=== PATIENT | female | born 1965 | race Caucasian/White ===

== ENCOUNTER → 2016-04-30 | Outpatient (CLI) | payer OTHER ==
[2016-04-30 07:56] LABS: EKG EKG PERFORMED
[2016-04-30 08:46] LABS: INR 0.9 (<1.1); Prothrombin Time 9.7 sec (9.0-12.0)
[2016-04-30 08:51] LABS: Basophils % (A) 0 %; CHCM 31.9; Eosinophils % (A) 0 %; HCT 44.6 % (34.0-46.0); HDW 2.04; HGB 14.2 gm/dL (11.4-16.0); Luc # (Auto) 0.14; Luc % (Auto) 1; Lymphocytes # (A) 1.7 k/uL (1.0-4.8); Lymphocytes % (A) 8 %; MCH 31.1 pg (25.0-35.0); MCHC 31.8 g/dL (31.0-37.0); MCV 97.7 fL (80.0-100.0); Mean Platelet Volume 7.4; Monocytes # (A) 0.6 k/uL (0-1.0); Monocytes % (A) 3 %; Neutrophils # (A) 18.8 k/uL (1.3-7.7); Neutrophils % (A) 88 %; RBC 4.56 m/uL (3.80-5.40); RDW 12.8 % (11.5-15.5); WBC 21.3 k/uL (3.8-10.6); WBC (Perox) 21.65
[2016-04-30 08:58] LABS: Anion Gap 13 mmol/L; Blood Urea Nitrogen 24 mg/dL (7-17); Calcium 9.6 mg/dL (8.4-10.2); Carbon Dioxide 22 mmol/L (22-30); Chloride 107 mmol/L (98-107); Glucose 184 mg/dL (74-99); Non-African American GFR(MDRD) >60 (>60 ml/min/1.73 sqM); Potassium 4.7 mmol/L (3.5-5.1); Sodium 142 mmol/L (137-145)
[2016-04-30 09:05] LABS: Appearance,Urine Clear (Clear); Bilirubin,Urine Negative (Negative); Glucose,Urine (UA) Negative (Negative); Ketones,Urine 1+ (Negative); Leukocyte Esterase,Urine Negative (Negative); Nitrite,Urine Negative (Negative); Protein,Urine Negative (Negative); Specific Gravity,Urine 1.027 (1.001-1.035); UA Billing (MACRO vs. MICRO) CHEM; Urobilinogen,Urine <2.0 mg/dL (<2.0)
== END | disposition home or self-care (01) ==
LOC: LABWHC1 07:46
PROVIDERS: ATTEND Orthopaedic Surgery
DX: Z01.812 Encounter for preprocedural laboratory examination (principal); D61.3 Idiopathic aplastic anemia; I49.49 Other premature depolarization; N39.0 Urinary tract infection, site not specified; Z79.01 Long term (current) use of anticoagulants
CPT/HCPCS: 36415; 80048; 81003; 85025; 85610; 85730; 87086; 93005

== ENCOUNTER → 2018-02-23 | Outpatient (CLI) | payer OTHER ==
--- NOTE | 2018-02-24 08:39 | XR ---
Lumbosacral spine HISTORY: Trauma and pain 5 views of lumbosacral spine No comparisons Surgical clips are present in the right upper quadrant. Vascular calcifications are noted incidentall y. Lumbar vertebral bodies show preserved height, bone mineralization. There is anterolisthesis grade 1 L3-4. Loss of disc height present at intervertebral levels especially L3-4, L4-5 and L5-S1. There is associated vacuum disc phenomenon present. Facet arthropathy changes are present. There is multile rajendra spondylosis. No evident spondylolysis. Postop changes noted near the gastroesophageal junction. IMPRESSION: Degenerative disc disease and facet arthropathy.
== END | disposition home or self-care (01) ==
LOC: RADXRMAIN 17:01
PROVIDERS: ATTEND Family Medicine
DX: M51.37 Other intervertebral disc degeneration, lumbosacral region (principal); M46.97 Unspecified inflammatory spondylopathy, lumbosacral region
CPT/HCPCS: 72110

== ENCOUNTER 2018-11-28 07:37 | Day surgery (SDC) | payer OTHER ==
[2018-11-25 11:11] VITALS: BMI 27.4
[~2018-11-28 07:37] MED LIST: LACTATED RINGERS 1,000 ML IV SCH; LIDOCAINE 1% 20 ML VIAL (10MG/ML) FOR IV START INTRADERMA PRN
[2018-11-28 07:58] VITALS: TEMP 97.8
[2018-11-28] MEDS ORDERED: LACTATED RINGERS 1,000 ML IV ONE (07:58)
[2018-11-28] MEDS ORDERED: PROPOFOL 10 MG/ML 20 ML VIAL IV ONE (08:46)
[2018-11-28] MEDS ORDERED: LIDOCAINE 1% INJ 10MG/ML (20 ML MDV) ONE (08:46)
--- NOTE | 2018-11-28 09:03 | P.GSHP ---
History of Present Illness H&P Date: 11/28/18 Chief Complaint: Dysphagia This a 53-year-old female with history of dysphagia. Patient rents today for EGD. 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 History of Any Multi-Drug Resistant Organisms: MRSA Date of last positivie culture/infection: 02/08/2014 MDRO Source:: CYST AT TOP OF BUTTOCKS Past Surgical History: Adenoidectomy, Cholecystectomy, Hernia Repair, Hysterectomy, Joint Replacement, Orthopedic Surgery, Tonsillectomy, Tubal Ligation, Uterine Ablation Additional Past Surgical History / Comment(s): UTERINE ABLATION 09/05/13, HYSTERECTOMY-12/19/2013., I & D CYST LIKE BOIL AT TOP OF BUTTOCKS, .RT ANKLE SURGERY, CTR-WINDY GANGLION CYSTS .,RT KNEE SCOPE X 2., LT KNEE SCOPE X1., HIATAL HERNIA REPAIR,, BILATERAL TOTAL KNEE . Past Anesthesia/Blood Transfusion Reactions: No Reported Reaction Additional Past Anesthesia/Blood Transfusion Reaction / Comment(s): STATES ALWAYS NAUSEATED. Past Psychological History: Bipolar Smoking Status: Current every day smoker Past Alcohol Use History: Rare Additional Past Alcohol Use History / Comment(s): SMOKES 1 PPD. Past Drug Use History: Marijuana Additional Drug Use History / Comment(s): SMOKES MARIJUANA DAILY - Past Family History Father Family Medical History: Unable to Obtain Mother Family Medical History: Cancer Additional Family Medical History / Comment(s): BREAST CANCER Medications and Allergies Home Medications Medication Instructions Recorded Confirmed Type Azithromycin [Zithromax Z-pack] 1 dose PO DIRECTED 11/25/18 11/25/18 History Breo Inhaler (Unknown Dose) 1 puff INHALATION DAILY 11/25/18 11/28/18 History Cetirizine HCl [Zyrtec] 10 mg PO DAILY 11/25/18 11/28/18 History Cyclobenzaprine [Flexeril] 5 mg PO BID PRN 11/25/18 11/28/18 History Naproxen (Unknown Dose) 1 tab PO DIRECTED PRN 11/25/18 11/28/18 History Omeprazole [PriLOSEC] 20 mg PO AC-BRKFST 11/25/18 11/28/18 History Ondansetron [Zofran] 4 mg PO Q8HR PRN 11/25/18 11/28/18 History Phenergan Cough Syrup 1 dose PO TID PRN 11/25/18 11/28/18 History Ranitidine HCl [Zantac] 200 mg PO DAILY 11/25/18 11/28/18 History Ziprasidone [Geodon] 60 mg PO HS 11/25/18 11/28/18 History Allergies Allergy/AdvReac Type Severity Reaction Status Date / Time sulfamethoxazole Allergy Unknown ITCHING, Verified 11/25/18 10:28 [From Bactrim] FELT LIKE BUGS CRAWLING ON SKIN trimethoprim [From Bactrim] Allergy Unknown ITCHING, Verified 11/25/18 10:28 FELT LIKE BUGS CRAWLING ON SKIN adhesive AdvReac TURNS SKIN Verified 11/25/18 10:27 RED AND SKIN PEELS OFF aspartame AdvReac Nausea Verified 11/25/18 10:27 [From Nutrasweet Aspartame] codeine AdvReac Dyspnea Verified 11/25/18 10:27 saccharin AdvReac Nausea Verified 11/25/18 10:27 vancomycin AdvReac CAUSED PT Verified 11/25/18 10:27 TO GO INTO RENAL FAILURE PER PT SUGAR , JUICE, POP Allergy Unknown States Uncoded 11/25/18 11:12 "moreira" in folds of skin Surgical - Exam Vital Signs Temp Pulse Resp BP Pulse Ox 97.8 F 93 18 139/87 96 11/28/18 07:57 11/28/18 07:57 11/28/18 07:57 11/28/18 07:57 11/28/18 07:57 - General well developed, well nourished, no distress - Eyes PERRL - ENT normal pinna - Neck no masses - Respiratory normal expansion - Cardiovascular Rhythm: regular - Abdomen Abdomen: soft, non tender Assessment and Plan Assessment: Dysphagia. We'll perform EGD.
--- NOTE | 2018-11-28 09:09 | P.OP ---
Date of Procedure: 11/28/18 Preoperative Diagnosis: Dysphagia Postoperative Diagnosis: Antral gastritis Small recurrent hiatal hernia Possible slipped fundoplication Mild esophagitis Procedure(s) Performed: EGD Anesthesia: MAC Surgeon: Jeffry Kelly Pathology: other (Antrum, esophagus) Condition: stable Disposition: PACU Description of Procedure: The a she was placed on the endoscopy table in the lateral position. She received IV sedation. The gastroscope placed oropharynx and passed in the esophagus and into the stomach. Scope was then placed through the pylorus. The first and second portion of the duodenum appeared normal. Scope was then brought back the antrum and this appeared mildly inflamed. A biopsies was p erformed. Scope was then retroflexed and the remainder of the stomach appeared normal. The GE junction was at 40 cm. There was a small recurrent hiatal hernia. The fundoplication Wrap appeared to be below GE junction. The scope was then brought back into the distal esophagus this was minimal inflamed. Biopsies performed. The proximal esophagus appeared normal. Scope was withdrawn for patient.
[2018-11-28 09:17] VITALS: RESP 16
[2018-11-28 09:35] VITALS: BP 137/88; PULSE 74
== END 2018-11-28 09:50 | disposition home or self-care (01) ==
LOC: ORWHC2ENDO 07:37
PROVIDERS: ATTEND Surgery
DX: K29.50 Unspecified chronic gastritis without bleeding (principal); K44.9 Diaphragmatic hernia without obstruction or gangrene; K21.0 Gastro-esophageal reflux disease with esophagitis; J45.909 Unspecified asthma, uncomplicated; I10 Essential (primary) hypertension; M19.90 Unspecified osteoarthritis, unspecified site; G40.109 Localization-related (focal) (partial) symptomatic epilepsy and epileptic syndromes with simple partial seizures, not intractable, without status epilepticus; F31.9 Bipolar disorder, unspecified; F17.210 Nicotine dependence, cigarettes, uncomplicated; Z79.899 Other long term (current) drug therapy; Z79.51 Long term (current) use of inhaled steroids; Z79.1 Long term (current) use of non-steroidal anti-inflammatories (NSAID); Z88.5 Allergy status to narcotic agent; Z88.2 Allergy status to sulfonamides; Z91.018 Allergy to other foods; Z91.048 Other nonmedicinal substance allergy status; Z88.1 Allergy status to other antibiotic agents; Z90.89 Acquired absence of other organs; Z90.49 Acquired absence of other specified parts of digestive tract; Z90.710 Acquired absence of both cervix and uterus; Z96.653 Presence of artificial knee joint, bilateral; Z98.51 Tubal ligation status; Z98.890 Other specified postprocedural states; Z87.448 Personal history of other diseases of urinary system; Z87.09 Personal history of other diseases of the respiratory system; Z80.3 Family history of malignant neoplasm of breast
CPT/HCPCS: 88305; 43239; J2001; J2704

== ENCOUNTER → 2018-12-23 | Outpatient (CLI) | payer OTHER ==
[2018-12-23 14:40] LABS: Basophils # (A) 0.1 k/uL (0-0.2); Basophils % (A) 1 %; Eosinophils # (A) 0.2 k/uL (0-0.7); Eosinophils % (A) 2 %; HCT 39.9 % (34.0-46.0); HGB 13.1 gm/dL (11.4-16.0); Lymphocytes # (A) 4.3 k/uL (1.0-4.8); Lymphocytes % (A) 37 %; MCHC 32.8 g/dL (31.0-37.0); MCV 94.4 fL (80.0-100.0); Mean Platelet Volume 5.9; Monocytes # (A) 0.8 k/uL (0-1.0); Monocytes % (A) 7 %; Neutrophils # (A) 5.9 k/uL (1.3-7.7); Neutrophils % (A) 51 %; Platelet Count 512 k/uL (150-450); RBC 4.22 m/uL (3.80-5.40); RDW 13.5 % (11.5-15.5); WBC 11.5 k/uL (3.8-10.6)
[2018-12-23 14:48] LABS: Potassium 4.4 mmol/L (3.5-5.1)
== END | disposition home or self-care (01) ==
LOC: LABPAT 13:19
PROVIDERS: ATTEND Surgery
DX: Z01.810 Encounter for preprocedural cardiovascular examination (principal); Z01.812 Encounter for preprocedural laboratory examination; D64.9 Anemia, unspecified; R13.10 Dysphagia, unspecified; F17.200 Nicotine dependence, unspecified, uncomplicated
CPT/HCPCS: 36415; 80051; 85025; 93005

== ENCOUNTER 2018-12-26 07:40 | Inpatient (IN) | payer OTHER ==
[2018-12-21 09:32] VITALS: BMI 29.7
[~2018-12-26 07:40] MED LIST changes: +DEXAMETHASONE SOD PHOSPHATE 10 MG/ML 1 ML VIAL IV ONE; +HEPARIN SODIUM,PORCINE 5,000 UNIT/ML 1 ML VIAL SQ ONE; -LACTATED RINGERS 1,000 ML IV SCH; +ONDANSETRON 4 MG/2 ML VIAL IVP ONE; +fentaNYL (PF) 50 MCG/ML 2 ML AMP IV PRN
[2018-12-26] MEDS: LACTATED RINGERS 1,000 ML IV SCH (09:08)
--- NOTE | 2018-12-26 10:09 | P.GSHP ---
History of Present Illness H&P Date: 12/26/18 Chief Complaint: GERD, dysphagia This a 53-year-old female who presents today for laparoscopic repair of recurrent hiatal hernia. Patient has developed GERD and dysphagia. 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, TEMPORAL LOBE EPILEPSY (LAST SEIZURE 32 YRS AGO), SINUS TACHYCARDIA, STATES WBC RUNS HIGH (SEES DR MERAZ), HX OF FX BACK 1993, CONSTIPATION & DIARRHEA, NAUSEA., STATES on rx for sinus infection History of Any Multi-Drug Resistant Organisms: MRSA Date of last positivie culture/infection: 02/08/2014 MDRO Source:: CYST AT TOP OF BUTTOCKS Past Surgical History: Adenoidectomy, Cholecystectomy, Hernia Repair, Hysterectomy, Joint Replacement, Orthopedic Surgery, Tonsillectomy, Tubal Ligation, Uterine Ablation Additional Past Surgical History / Comment(s): I & D CYST LIKE BOIL AT TOP OF BUTTOCKS, RT ANKLE SURGERY, CTR-WINDY GANGLION CYSTS .,RT KNEE ARTHROSCOPY X 2, LT KNEE ARTHROSCOPY X1, HIATAL HERNIA REPAIR, BILATERAL KNEE REPLACEMENTS Past Anesthesia/Blood Transfusion Reactions: No Reported Reaction Additional Past Anesthesia/Blood Transfusion Reaction / Comment(s): STATES ALWAYS NAUSEATED. Smoking Status: Current every day smoker - Past Family History Father Family Medical History: Unable to Obtain Mother Family Medical History: Cancer Additional Family Medical History / Comment(s): BREAST CANCER Medications and Allergies Home Medications Medication Instructions Recorded Confirmed Type Cetirizine HCl [Zyrtec] 10 mg PO DAILY 11/25/18 12/26/18 History Cyclobenzaprine [Flexeril] 5 mg PO BID PRN 11/25/18 12/26/18 History Naproxen (Unknown Dose) 1 tab PO DIRECTED PRN 11/25/18 12/26/18 History Omeprazole [PriLOSEC] 20 mg PO AC-BRKFST 11/25/18 12/26/18 History Ondansetron [Zofran] 4 mg PO Q8HR PRN 11/25/18 12/26/18 History Ranitidine HCl [Zantac] 200 mg PO DAILY 11/25/18 12/26/18 History Ziprasidone [Geodon] 60 mg PO HS 11/25/18 12/26/18 History Amoxic-Pot Clav 875-125Mg 1 tab PO Q12HR 12/21/18 12/26/18 History [Augmentin 875-125] Allergies Allergy/AdvReac Type Severity Reaction Status Date / Time sulfamethoxazole Allergy Unknown ITCHING, Verified 12/26/18 09:00 [From Bactrim] FELT LIKE BUGS CRAWLING ON SKIN trimethoprim [From Bactrim] Allergy Unknown ITCHING, Verified 12/26/18 09:00 FELT LIKE BUGS CRAWLING ON SKIN adhesive AdvReac TURNS SKIN Verified 12/26/18 09:00 RED AND SKIN PEELS OFF aspartame AdvReac Nausea Verified 12/26/18 09:00 [From Nutrasweet Aspartame] codeine AdvReac Dyspnea Verified 12/26/18 09:00 saccharin AdvReac Nausea Verified 12/26/18 09:00 vancomycin AdvReac CAUSED PT Verified 12/26/18 09:00 TO GO INTO RENAL FAILURE PER PT SUGAR , JUICE, POP Allergy Unknown States Uncoded 12/26/18 09:00 "moreira" in folds of skin Surgical - Exam Vital Signs Temp Pulse Resp BP Pulse Ox 97.9 F 81 16 142/90 98 12/26/18 08:58 12/26/18 08:58 12/26/18 08:58 12/26/18 08:58 12/26/18 08:58 - General well developed, well nourished, no distress - Eyes PERRL - ENT normal pinna - Neck no masses - Respiratory normal expansion - Cardiovascular Rhythm: regular - Abdomen Abdomen: soft, non tender Assessment and Plan Assessment: GERD, dysphagia. We'll perform repair of recurrent hiatal hernia.
[2018-12-26] MEDS ORDERED: LABETALOL 5 MG/ML VIAL MDV ONE (10:31)
[2018-12-26] MEDS ORDERED: SUCCINYLCHOLINE CHLORIDE 100 MG/5 ML SYR IV ONE (10:31)
[2018-12-26] MEDS ORDERED: KETOROLAC 30 MG/ML 1 ML VIAL ONE (10:31)
[2018-12-26] MEDS ORDERED: PROPOFOL 10 MG/ML 20 ML VIAL IV ONE (10:31)
[2018-12-26] MEDS ORDERED: MIDAZOLAM 2 MG/2 ML VIAL ONE (10:31)
[2018-12-26] MEDS ORDERED: GLYCOPYRROLATE 0.2 MG/ML 2 ML VIAL ONE (10:31)
[2018-12-26] MEDS ORDERED: ROCURONIUM BROMIDE 10 MG/ML 10 ML VIAL IV ONE (10:31)
[2018-12-26] MEDS ORDERED: LIDOCAINE 1% INJ 10MG/ML (20 ML MDV) ONE (10:31)
[2018-12-26] MEDS ORDERED: NEOSTIGMINE 1 MG/ML 10 ML VIAL ONE (10:31)
[2018-12-26] MEDS ORDERED: fentaNYL (PF) 50 MCG/ML 2 ML AMP ONE (10:31)
[2018-12-26] MEDS ORDERED: LACTATED RINGERS 1,000 ML IV ONE ×2 (11:00)
[2018-12-26] MEDS ORDERED: BUPIVACAINE (PF) 0.25% 30 ML VIAL SQ ONE (11:05)
[2018-12-26] MEDS: HYDROmorphone 0.5 MG/0.5 ML SYRINGE IVP PRN ×2 (12:10→12:18)
[2018-12-26] MEDS ORDERED: hydrALAZINE HCL 20 MG/ML 1 ML VIAL IVP ONE (12:58)
[2018-12-26] MEDS: METOCLOPRAMIDE 5 MG/ML 2 ML VIAL IVP SCH ×3 (14:01→19:40)
[2018-12-26] MEDS: D5-0.45% NACL WITH KCL 20MEQ/L 1,000 ML IV SCH ×2 (17:01→23:48)
[2018-12-26] MEDS: HYDROmorphone 1 MG/ML 1 ML SYRINGE IVP PRN ×2 (17:18→21:19)
[2018-12-26] MEDS: FAMOTIDINE 20 MG/2 ML VIAL IV SCH (20:48)
[2018-12-27] MEDS: METOCLOPRAMIDE 5 MG/ML 2 ML VIAL IVP SCH ×3 (00:42→12:06)
[2018-12-27] MEDS: LACTATED RINGERS 1,000 ML IV SCH (01:43)
[2018-12-27] MEDS: HYDROmorphone 1 MG/ML 1 ML SYRINGE IVP PRN ×2 (04:38→09:04)
[2018-12-27 04:43] VITALS: RESP 16
[2018-12-27 08:37] VITALS: BP 123/77; PULSE 95; TEMP 98.3
[2018-12-27] MEDS ORDERED: ENOXAPARIN 40 MG/0.4 ML SYRINGE SQ SCH (09:00)
[2018-12-27] MEDS: FAMOTIDINE 20 MG/2 ML VIAL IV SCH (09:03)
--- NOTE | 2018-12-27 11:13 | P.DS ---
Providers Date of admission: 12/26/18 08:18 Expected date of discharge: 12/27/18 Attending physician: Jeffry Kelly Consults: 12/26/18 11:54 Consult Physician Routine Consulting Provider: David Weiss Consult Reason/Comments: Medical management Do you want consulting provider notified?: Yes Primary care physician: Floresita Quan [facility] Course: 53-year-old female who underwent laparoscopic repair of recurrent hiatal hernia with Dr. Kelly. Patient is doing well postoperatively. She is tolerating liquid diet. Pain is controlled on oral medications. Vital signs have been stable. She is stable for discharge home today. Please see EMR for further hospital course details. Discharge Diagnosis 1. Status post laparoscopic repair of recurrent hiatal hernia Nurse practitioner note has been reviewed by physician. Signing provider agrees with the documented findings, assessment, and plan of care. Plan - Discharge Summary Discharge Rx Participant: Yes New Discharge Prescriptions: New Hydrocodone/Acetaminophen [Fisher 5-325] 1 tab PO Q6HR PRN 3 Days #12 tab PRN Reason: Pain No Action Cetirizine HCl [Zyrtec] 10 mg PO DAILY Cyclobenzaprine [Flexeril] 5 mg PO BID PRN PRN Reason: Muscle Pain Ranitidine HCl [Zantac] 200 mg PO DAILY Ondansetron [Zofran] 4 mg PO Q8HR PRN PRN Reason: Nausea Omeprazole [PriLOSEC] 20 mg PO AC-BRKFST Ziprasidone [Geodon] 60 mg PO HS Naproxen (Unknown Dose) 1 tab PO DIRECTED PRN PRN Reason: Pain Amoxic-Pot Clav 875-125Mg [Augmentin 875-125] 1 tab PO Q12HR Discharge Medication List Cetirizine HCl [Zyrtec] 10 mg PO DAILY 11/25/18 [History] Cyclobenzaprine [Flexeril] 5 mg PO BID PRN 11/25/18 [History] Naproxen (Unknown Dose) 1 tab PO DIRECTED PRN 11/25/18 [History] Omeprazole [PriLOSEC] 20 mg PO AC-BRKFST 11/25/18 [History] Ondansetron [Zofran] 4 mg PO Q8HR PRN 11/25/18 [History] Ranitidine HCl [Zantac] 200 mg PO DAILY 11/25/18 [History] Ziprasidone [Geodon] 60 mg PO HS 11/25/18 [History] Amoxic-Pot Clav 875-125Mg [Augmentin 875-125] 1 tab PO Q12HR 12/21/18 [History] Hydrocodone/Acetaminophen [Fisher 5-325] 1 tab PO Q6HR PRN 3 Days #12 tab 12/27/18 [Rx] Follow up Appointment(s)/Referral(s): Jeffry Kelly MD [STAFF PHYSICIAN] - 2 Weeks Activity/Diet/Wound Care/Special Instructions: No driving while taking Fisher No lifting over 10 pounds You may shower. No soaking or tub baths Very light activity until you are reevaluated at your follow up appointment with your surgeon Full liquid/soft diet for 2 weeks
--- NOTE | 2018-12-27 14:58 | FL ---
EXAMINATION TYPE: FL esophagus cervic/pharynx DATE OF EXAM: 12/26/2018 CLINICAL HISTORY: Surgical evaluation. Status post Lion fundoplication. TECHNIQUE: Limited esophagram is performed utilizing Isovue 370. A total of 33 seconds of fluoroscop ic time was utilized during procedure. 15 fluoroscopic images were saved on the examination. FINDINGS: The patient swallowed contrast without difficulty or delay. Esophageal peristalsis and mo tility are within normal limits. There is good flow of contrast along the diaphragmatic hiatus into t he stomach, there is no evidence of contrast extravasation to suggest leak. No persistent hiatal junior ia is seen. Patient remains asymptomatic. IMPRESSION: No evidence of leak or significant obstruction status post Sreedhar fundoplication surgery earlier today.
--- NOTE | 2018-12-27 16:12 | P.CONS ---
History of Present Illness - Reason for Consult Consult date: 12/27/18 medical management Requesting physician: Jeffry Kelly - History of Present Illness Analisa Blackwell is a 53 yo F who is POD#1 after a scheduled hiatal hernia repair. She is overall feeling well today, reports good appetite and tolerated clear liquid diet without difficulty. She denies fever, chills, abdominal pain, nausea or vomiting. She has been ambulatory and is passing gas. She has no conc erns today. Review of Systems All systems: negative Constitutional: Denies chills, Denies fever Eyes: denies blurred vision, denies pain Ears, nose, mouth and throat: Denies headache, Denies sore throat Cardiovascular: Denies chest pain, Denies shortness of breath Respiratory: Denies cough Gastrointestinal: Reports as per HPI, Reports abdominal pain, Denies diarrhea, Denies nausea, Denies vomiting Genitourinary: Denies dysuria, Denies hematuria Musculoskeletal: Denies myalgias Integumentary: Denies pruritus, Denies rash Neurological: Denies numbness, Denies weakness Psychiatric: Denies anxiety, Denies depression Endocrine: Denies fatigue, Denies weight change 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, TEMPORAL LOBE EPILEPSY (LAST SEIZURE 32 YRS AGO), SINUS TACHYCARDIA, STATES WBC RUNS HIGH (SEES DR MERAZ), HX OF FX BACK 1993, CONSTIPATION & DIARRHEA, NAUSEA., History of Any Multi-Drug Resistant Organisms: MRSA Year Discovered:: 02/08/2014 MDRO Source:: CYST AT TOP OF BUTTOCKS Past Surgical History: Adenoidectomy, Cholecystectomy, Hernia Repair, Hysterectomy, Joint Replacement, Orthopedic Surgery, Tonsillectomy, Tubal Ligation, Uterine Ablation Additional Past Surgical History / Comment(s): I & D CYST LIKE BOIL AT TOP OF BUTTOCKS, RT ANKLE SURGERY, CTR-WINDY GANGLION CYSTS .,RT KNEE ARTHROSCOPY X 2, LT KNEE ARTHROSCOPY X1, HIATAL HERNIA REPAIR, BILATERAL KNEE REPLACEMENTS Past Anesthesia/Blood Transfusion Reactions: Postoperative Nausea & Vomiting (PO NV) Additional Past Anesthesia/Blood Transfusion Reaction / Comm: STATES ALWAYS NAUSEATED. Past Psychological History: Bipolar, Depression Smoking Status: Current every day smoker Past Alcohol Use History: Rare Additional Past Alcohol Use History / Comment(s): SMOKES 1 PPD. has smoked for 35 yrs Past Drug Use History: Marijuana Additional Drug Use History / Comment(s): SMOKES MARIJUANA DAILY - Past Family History Father Family Medical History: Unable to Obtain Mother Family Medical History: Cancer Additional Family Medical History / Comment(s): BREAST CANCER Medications and Allergies Home Medications Medication Instructions Recorded Confirmed Type Cetirizine HCl [Zyrtec] 10 mg PO DAILY 11/25/18 12/26/18 History Cyclobenzaprine [Flexeril] 5 mg PO BID PRN 11/25/18 12/26/18 History Naproxen (Unknown Dose) 1 tab PO DIRECTED PRN 11/25/18 12/26/18 History Omeprazole [PriLOSEC] 20 mg PO AC-BRKFST 11/25/18 12/26/18 History Ondansetron [Zofran] 4 mg PO Q8HR PRN 11/25/18 12/26/18 History Ranitidine HCl [Zantac] 200 mg PO DAILY 11/25/18 12/26/18 History Ziprasidone [Geodon] 60 mg PO HS 11/25/18 12/26/18 History Amoxic-Pot Clav 875-125Mg 1 tab PO Q12HR 12/21/18 12/26/18 History [Augmentin 875-125] Hydrocodone/Acetaminophen [[place] 1 tab PO Q6HR PRN 3 Days #12 tab 12/27/18 Rx 5-325] Allergies Allergy/AdvReac Type Severity Reaction Status Date / Time sulfamethoxazole Allergy Unknown ITCHING, Verified 12/26/18 09:00 [From Bactrim] FELT LIKE BUGS CRAWLING ON SKIN trimethoprim [From Bactrim] Allergy Unknown ITCHING, Verified 12/26/18 09:00 FELT LIKE BUGS CRAWLING ON SKIN adhesive AdvReac TURNS SKIN Verified 12/26/18 09:00 RED AND SKIN PEELS OFF aspartame AdvReac Nausea Verified 12/26/18 09:00 [From Nutrasweet Aspartame] codeine AdvReac Dyspnea Verified 12/26/18 09:00 saccharin AdvReac Nausea Verified 12/26/18 09:00 vancomycin AdvReac CAUSED PT Verified 12/26/18 09:00 TO GO INTO RENAL FAILURE PER PT SUGAR , JUICE, POP AdvReac Unknown States Uncoded 12/26/18 17:40 "moreira" in folds of skin Physical Exam Vitals: Vital Signs Temp Pulse Resp BP Pulse Ox 12/27/18 07:00 98.3 F 95 16 123/77 12/27/18 04:38 98.5 F 71 16 142/87 97 12/26/18 23:48 98.4 F 78 18 123/81 97 12/26/18 20:47 98.9 F 93 18 135/79 97 12/26/18 17:02 98 F 88 20 135/80 96 12/26/18 16:18 85 20 141/81 95 Intake and Output 12/27/18 12/27/18 12/27/18 06:59 14:59 22:59 Intake Total 240 Output Total 1850 300 Balance -1850 -60 Intake: Oral 240 Output: Urine 1850 300 Other: # Voids 1 General: well nourished, well developed, NAD. Vitals reviewed Eyes: PERRL, EOMI, conjunctiva normal HENT: normocephalic, mucus membranes moist Neck: supple, no JVD Lungs: normal respiratory effort, no wheezes or rales CV: Regular rate and rhythm, no murmur. Peripheral pulses 2+ Abdomen: soft, nondistended, no organomegaly. Tender epigastric around incision Lymph: no cervical or axillary LAD Skin: warm and dry. Neuro: A&Ox3, normal mood and affect Assessment and Plan Plan: 1. Hiatal hernia s/p repair with mesh. Pain control per primary. Encourage ambulation. She is medically stable for discharge 2. Seizure disorder. Continue geodon 3. Back pain. Continue flexeril prn
--- NOTE | 2019-01-23 17:35 | P.OP ---
Date of Procedure: 12/26/18 Preoperative Diagnosis: GERD Dysphagia Postoperative Diagnosis: GERD Dysphagia Recurrent hiatal hernia Procedure(s) Performed: Laparoscopic repair of recurrent hiatal hernia Anesthesia: MEREDITH Surgeon: Jeffry Kelly Estimated Blood Loss (ml): 10 Pathology: none sent Condition: stable Disposition: PACU Description of Procedure: The patient was placed on the operating table in the supine position. The patient received general anesthesia. And was placed in dorsal lithotomy position. The patient was prepped and draped in the usual sterile fashion. The skin incision sites were anesthetized with 1% local Xylocaine. The skin was incised in the left periumbilical area and then using a blade less 5 mm trocar under direct visualization panel cavity was entered. After adequate insufflation the laparoscope was then placed into the peritoneal cavity. Next a 5 mm trochars placed in the right epigastric position. Another 5 millimeter trocar the right lateral position. Another 5 millimeter trocar in the left lateral position a 5 mm trocar is placed in the left epigastric position. And then the initial 5 mm trocar was exchanged for a 10 mm trocar. The left lateral lobe liver was retracted. The hernia was seen. The crural defect was then dissected using the Harmonic scissors device. A 360 crural dissection was performed the esophagus stomach was reduced back into the peritoneal Cavity. The crural defect was then closed using 2-0 Ethibond suture. Next the fundus of the stomach was mobilized using the Harmonic scissors device. and then a 58-[place] bougie dilator was placed oropharynx passed into the esophagus and stomach the fundal plication wrap was then performed by grasping the fundus posteriorly and bringing it around the esophagus and stomach fundoplication was then performed using 2-0 Ethibond suture. Care was taken that the fundal location rested over top of the intra-abdominal esophagus. There was no injury seen to the stomach or esophagus. The dilator was then withdrawn. The abdomen was irrigated there is no bleeding seen. The trochars were then withdrawn and then skin incision sites were closed using 3-0 Monocryl suture Steri-Strips are applied. Patient thought procedure well and sent to recovery room in stable condition.
== END 2018-12-27 13:00 | disposition home or self-care (01) | DRG 328 ==
LOC: 2ORMAIN 08:18 → 6PED 12:23
PROVIDERS: ADMIT Surgery; ATTEND Surgery
PROC: 0BUT4JZ Supplement Diaphragm with Synthetic Substitute, Percutaneous Endoscopic Approach (ICD-10-PCS; principal; 2018-12-26 10:15)
DX: K44.9 Diaphragmatic hernia without obstruction or gangrene (principal); F17.210 Nicotine dependence, cigarettes, uncomplicated; G40.909 Epilepsy, unspecified, not intractable, without status epilepticus; I10 Essential (primary) hypertension; J45.909 Unspecified asthma, uncomplicated; K21.9 Gastro-esophageal reflux disease without esophagitis; R13.10 Dysphagia, unspecified; Z80.3 Family history of malignant neoplasm of breast; Z90.710 Acquired absence of both cervix and uterus; Z96.653 Presence of artificial knee joint, bilateral; Z90.49 Acquired absence of other specified parts of digestive tract; Z88.1 Allergy status to other antibiotic agents; Z88.5 Allergy status to narcotic agent; Z88.2 Allergy status to sulfonamides; Z88.8 Allergy status to other drugs, medicaments and biological substances; Z86.14 Personal history of Methicillin resistant Staphylococcus aureus infection; F31.9 Bipolar disorder, unspecified; M19.90 Unspecified osteoarthritis, unspecified site; M54.9 Dorsalgia, unspecified; Z98.51 Tubal ligation status
CPT/HCPCS: 74210; 86850; 86900; 86901

== ENCOUNTER 2019-05-24 14:19 | Emergency (ER) | payer OTHER ==
[2019-05-24 14:29] VITALS: TEMP 98.2
[2019-05-24] MEDS ORDERED: SODIUM CHLORIDE 0.9% 1,000 ML IV STA (14:43)
--- NOTE | 2019-05-24 15:00 | ED ---
General Adult HPI - General Source: patient Mode of arrival: wheelchair Limitations: no limitations <SreekemShine Fatemeh - Last Filed: 05/24/19 15:19> <Zonia Nunez - Last Filed: 05/25/19 01:11> - General Chief complaint: Arrhythmia/Palpitations Stated complaint: palpitation/SOB Time Seen by Provider: 05/24/19 14:43 - History of Present Illness Initial comments: Dictation was produced using [employer] dictation software. please excuse any grammatical, word or spelling errors. This patient was cared for during a federal and state declared state of emergency secondary to Covid 19 Chief Complaint: 54-year-old female past medical history of sinus tachycardia, asthma, anal disease presents with palpitations. History of Present Illness: Patient is 54-year-old female she reports that she's been having palpitations since yesterday. Patient has a history of sinus tachycardia. She reports that over the last 48 hours she's been feeling like she's been missing beats. Patient states she's been evaluated by cardiology before. Patient has any chest pain. Denies any nausea or vomiting. She does not take any rate controlling medications. The ROS documented in this emergency department record has been reviewed and confirmed by me. Those systems with pertinent positive or negative responses have been documented in the HPI. All other systems are other negative and/or noncontributory. PHYSICAL EXAM: General Impression: Alert and oriented x3, not in acute distress HEENT: Normocephalic atraumatic, extra-ocular movements intact, pupils equal and reactive to light bilaterally, mucous membranes moist. Cardiovascular: Heart regular rate and rhythm Chest: Able to complete full sentences, no retractions, no tachypnea Abdomen: Bowel sounds present, abdomen soft, non-tender, non-distended, no organomegaly Musculoskeletal: Pulses present and equal in all extremities, no peripheral edema Motor: no focal deficits noted Neurological: CN II-XII grossly intact, no focal motor or sensory deficits noted Skin: Intact with no visualized rashes Psych: Normal affect and mood ED course: 54-year-old male presents with chief complaint of palpitations. Vital signs upon arrival are within acceptable limits. EKGs benign. Patient is signed out to Dr. Nunez EKG interpretation: Ventricular rate color rate 75, when necessary 172, normal sinus rhythm, QRS 92, QTC 408. No MT prolongation, no QTC prolongation, no ST or T-wave changes noted. EKG compared to 12/23/2018 showing no changes. Overall, this EKG is unremarkable (Shine Garcia) - Related Data Home Medications Medication Instructions Recorded Confirmed Cetirizine HCl [Zyrtec] 10 mg PO DAILY 11/25/18 12/26/18 Cyclobenzaprine [Flexeril] 5 mg PO BID PRN 11/25/18 12/26/18 Naproxen (Unknown Dose) 1 tab PO DIRECTED PRN 11/25/18 12/26/18 Omeprazole [PriLOSEC] 20 mg PO AC-BRKFST 11/25/18 12/26/18 Ondansetron [Zofran] 4 mg PO Q8HR PRN 11/25/18 12/26/18 Ranitidine HCl [Zantac] 200 mg PO DAILY 11/25/18 12/26/18 Ziprasidone [Geodon] 60 mg PO HS 11/25/18 12/26/18 Amoxic-Pot Clav 875-125Mg 1 tab PO Q12HR 12/21/18 12/26/18 [Augmentin 875-125] Previous Rx's Medication Instructions Recorded Hydrocodone/Acetaminophen [[place] 1 tab PO Q6HR PRN 3 Days #12 tab 12/27/18 5-325] Allergies Allergy/AdvReac Type Severity Reaction Status Date / Time sulfamethoxazole Allergy Unknown ITCHING, Verified 05/24/19 14:28 [From Bactrim] FELT LIKE BUGS CRAWLING ON SKIN trimethoprim [From Bactrim] Allergy Unknown ITCHING, Verified 05/24/19 14:28 FELT LIKE BUGS CRAWLING ON SKIN adhesive AdvReac TURNS SKIN Verified 05/24/19 14:28 RED AND SKIN PEELS OFF aspartame AdvReac Nausea Verified 05/24/19 14:28 [From Nutrasweet Aspartame] codeine AdvReac Dyspnea Verified 05/24/19 14:28 saccharin AdvReac Nausea Verified 05/24/19 14:28 vancomycin AdvReac CAUSED PT Verified 05/24/19 14:28 TO GO INTO RENAL FAILURE PER PT Review of Systems ROS Other: All systems not noted in ROS Statement are negative. <Shine Garcia - Last Filed: 05/24/19 15:19> ROS Other: All systems not noted in ROS Statement are negative. <Zonia Nunez - Last Filed: 05/25/19 01:11> ROS Statement: Those systems with pertinent positive or pertinent negative responses have been documented in the HPI. 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, TEMPORAL LOBE EPILEPSY (LAST SEIZURE 32 YRS AGO), SINUS TACHYCARDIA, STATES WBC RUNS HIGH (SEES DR MERAZ), HX OF FX BACK 1993, CONSTIPATION & DIARRHEA, NAUSEA., History of Any Multi-Drug Resistant Organisms: MRSA Date of last positivie culture/infection: 02/08/2014 MDRO Source:: CYST AT TOP OF BUTTOCKS Past Surgical History: Adenoidectomy, Cholecystectomy, Hernia Repair, Hysterectomy, Joint Replacement, Orthopedic Surgery, Tonsillectomy, Tubal Ligation, Uterine Ablation Additional Past Surgical History / Comment(s): I & D CYST LIKE BOIL AT TOP OF BUTTOCKS, RT ANKLE SURGERY, CTR-WINDY GANGLION CYSTS .,RT KNEE ARTHROSCOPY X 2, LT KNEE ARTHROSCOPY X1, HIATAL HERNIA REPAIR, BILATERAL KNEE REPLACEMENTS Past Anesthesia/Blood Transfusion Reactions: Postoperative Nausea & Vomiting (PONV) Additional Past Anesthesia/Blood Transfusion Reaction / Comment(s): STATES ALWAYS NAUSEATED. Past Psychological History: Bipolar, Depression Smoking Status: Current every day smoker Past Alcohol Use History: Rare Past Drug Use History: Marijuana - Past Family History Father Family Medical History: Unable to Obtain Mother Family Medical History: Cancer Additional Family Medical History / Comment(s): BREAST CANCER <Shine Garcia - Last Filed: 05/24/19 15:19> General Exam Limitations: no limitations <Shine Garcia - Last Filed: 05/24/19 15:19> Course Vital Signs 05/24/19 05/24/19 05/24/19 14:25 14:37 15:00 Temperature 98.2 F Pulse Rate 77 70 68 Respiratory 18 17 17 Rate Blood Pressure 133/81 120/82 O2 Sat by Pulse 99 98 98 Oximetry 05/24/19 05/24/19 15:30 16:25 Temperature Pulse Rate 64 74 Respiratory 15 18 Rate Blood Pressure 133/89 119/83 O2 Sat by Pulse 99 98 Oximetry Medical Decision Making - Lab Data Result diagrams: 05/24/19 14:40 05/24/19 14:40 <Shine Garcia - Last Filed: 05/24/19 15:19> - Lab Data Result diagrams: 05/24/19 14:40 05/24/19 14:40 <Zonia Nunez - Last Filed: 05/25/19 01:11> - Medical Decision Making The patient was signed out to me by Dr. Garcia. I did review the patient's laboratory studies. White blood cell count minimally elevated 11.9. Troponin is negative. Electrolytes are normal. Chest x-ray demonstrates no evidence for acute cord a pulmonary disease. I discussed the results with the patient. She did remain on the campus monitor throughout her stay in the ER. No signs of ectopy. I discussed diagnosis, differential and treatment options. I do believe that the patient would benefit from an echo and Holter monitoring. I did discuss this with her the need to obtain this from her primary care office. The patient understood this. I also provided her with information for the [facility]. If she has any new or worsening symptoms she should return to the emergency room. The patient agreed to this and was discharged home in stable condition (Zonia Nunez) - Lab Data Lab Results 05/24/19 05/24/19 05/24/19 Range/Units 14:40 14:40 14:40 WBC 11.9 H (3.8-10.6) k/uL RBC 4.15 (3.80-5.40) m/uL Hgb 13.0 (11.4-16.0) gm/dL Hct 39.4 (34.0-46.0) % MCV 94.7 (80.0-100.0) fL MCH 31.3 (25.0-35.0) pg MCHC 33.1 (31.0-37.0) g/dL RDW 13.7 (11.5-15.5) % Plt Count 480 H (150-450) k/uL Neutrophils % 61 % Lymphocytes % 28 % Monocytes % 6 % Eosinophils % 2 % Basophils % 0 % Neutrophils # 7.2 (1.3-7.7) k/uL Lymphocytes # 3.4 (1.0-4.8) k/uL Monocytes # 0.7 (0-1.0) k/uL Eosinophils # 0.2 (0-0.7) k/uL Basophils # 0.0 (0-0.2) k/uL PT 9.4 (9.0-12.0) sec INR 0.9 (<1.2) APTT 26.2 (22.0-30.0) sec Sodium 138 (137-145) mmol/L Potassium 4.1 (3.5-5.1) mmol/L Chloride 108 H (98-107) mmol/L Carbon Dioxide 27 (22-30) mmol/L Anion Gap 3 mmol/L BUN 14 (7-17) mg/dL Creatinine 1.02 (0.52-1.04) mg/dL Est GFR (CKD-EPI)AfAm 74 (>60 ml/min/1.73 sqM) Est GFR (CKD-EPI)NonAf 64 (>60 ml/min/1.73 sqM) Glucose 106 H (74-99) mg/dL Calcium 9.5 (8.4-10.2) mg/dL Magnesium 1.9 (1.6-2.3) mg/dL Total Bilirubin 0.3 (0.2-1.3) mg/dL AST 24 (14-36) U/L ALT 19 (4-34) U/L Alkaline Phosphatase 60 (38-126) U/L Troponin I (0.000-0.034) ng/mL Total Protein 7.0 (6.3-8.2) g/dL Albumin 3.9 (3.5-5.0) g/dL TSH 0.721 (0.465-4.680) mIU/L 05/24/19 Range/Units 14:40 WBC (3.8-10.6) k/uL RBC (3.80-5.40) m/uL Hgb (11.4-16.0) gm/dL Hct (34.0-46.0) % MCV (80.0-100.0) fL MCH (25.0-35.0) pg MCHC (31.0-37.0) g/dL RDW (11.5-15.5) % Plt Count (150-450) k/uL Neutrophils % % Lymphocytes % % Monocytes % % Eosinophils % % Basophils % % Neutrophils # (1.3-7.7) k/uL Lymphocytes # (1.0-4.8) k/uL Monocytes # (0-1.0) k/uL Eosinophils # (0-0.7) k/uL Basophils # (0-0.2) k/uL PT (9.0-12.0) sec INR (<1.2) APTT (22.0-30.0) sec Sodium (137-145) mmol/L Potassium (3.5-5.1) mmol/L Chloride (98-107) mmol/L Carbon Dioxide (22-30) mmol/L Anion Gap mmol/L BUN (7-17) mg/dL Creatinine (0.52-1.04) mg/dL Est GFR (CKD-EPI)AfAm (>60 ml/min/1.73 sqM) Est GFR (CKD-EPI)NonAf (>60 ml/min/1.73 sqM) Glucose (74-99) mg/dL Calcium (8.4-10.2) mg/dL Magnesium (1.6-2.3) mg/dL Total Bilirubin (0.2-1.3) mg/dL AST (14-36) U/L ALT (4-34) U/L Alkaline Phosphatase (38-126) U/L Troponin I <0.012 (0.000-0.034) ng/mL Total Protein (6.3-8.2) g/dL Albumin (3.5-5.0) g/dL TSH (0.465-4.680) mIU/L Disposition <Shine Garcia - Last Filed: 05/24/19 15:19> Is patient prescribed a controlled substance at d/c from ED?: No Time of Disposition: 16:11 <Zonia Nunez - Last Filed: 05/25/19 01:11> Clinical Impression: Palpitations Disposition: HOME SELF-CARE Condition: Stable Instructions (If sedation given, give patient instructions): Heart Palpitations (ED) Additional Instructions: Please follow-up with your primary care doctor and the [facility] associates for further evaluation. I do think you need Holter monitoring and an echo. Return to the emergency room for any new or worsening symptoms Referrals: Floresita uQan DO [Primary Care Provider] - 1-2 days [facility] [Provider Group] - 1-2 days
[2019-05-24 15:02] LABS: Basophils % (A) 0 %; Eosinophils # (A) 0.2 k/uL (0-0.7); Eosinophils % (A) 2 %; HCT 39.4 % (34.0-46.0); Lymphocytes # (A) 3.4 k/uL (1.0-4.8); Lymphocytes % (A) 28 %; MCH 31.3 pg (25.0-35.0); MCHC 33.1 g/dL (31.0-37.0); MCV 94.7 fL (80.0-100.0); Mean Platelet Volume 7.3; Monocytes # (A) 0.7 k/uL (0-1.0); Monocytes % (A) 6 %; Neutrophils # (A) 7.2 k/uL (1.3-7.7); Neutrophils % (A) 61 %; Platelet Count 480 k/uL (150-450); RBC 4.15 m/uL (3.80-5.40); RDW 13.7 % (11.5-15.5); WBC 11.9 k/uL (3.8-10.6)
[2019-05-24 15:07] LABS: Potassium 4.1 mmol/L (3.5-5.1)
[2019-05-24 15:09] LABS: INR 0.9 (<1.2); Partial Thromboplastin Time 26.2 sec (22.0-30.0); Prothrombin Time 9.4 sec (9.0-12.0)
--- NOTE | 2019-05-24 15:13 | XR ---
EXAMINATION TYPE: XR chest 2V DATE OF EXAM: 05/24/2019 COMPARISON: NONE HISTORY: Shortness of breath TECHNIQUE: Frontal and lateral views of the chest are obtained. FINDINGS: Scattered senescent parenchymal changes noted. Hyperinflation compatible with COPD. No evidence for infiltrate. No evidence for atelectasis. Heart size is stable. Mediastinal structures are stable and grossly unremarkable. No evidence for hilar prominence. Degenerative changes dorsal spine. IMPRESSION: 1. No evidence for acute pulmonary disease.
[2019-05-24 15:15] LABS: Albumin 3.9 g/dL (3.5-5.0); Calcium 9.5 mg/dL (8.4-10.2); Magnesium 1.9 mg/dL (1.6-2.3); Total Bilirubin 0.3 mg/dL (0.2-1.3)
[2019-05-24 16:26] VITALS: BP 119/83; PULSE 74; RESP 18
== END 2019-05-24 16:25 | disposition home or self-care (01) ==
LOC: EC 14:19
DX: R00.2 Palpitations (principal); D72.829 Elevated white blood cell count, unspecified; F31.9 Bipolar disorder, unspecified; K21.9 Gastro-esophageal reflux disease without esophagitis; J45.909 Unspecified asthma, uncomplicated; I10 Essential (primary) hypertension; M19.90 Unspecified osteoarthritis, unspecified site; F17.200 Nicotine dependence, unspecified, uncomplicated; Z79.899 Other long term (current) drug therapy; Z88.2 Allergy status to sulfonamides; Z91.048 Other nonmedicinal substance allergy status; Z91.09 Other allergy status, other than to drugs and biological substances; Z88.5 Allergy status to narcotic agent; Z88.1 Allergy status to other antibiotic agents; Z96.653 Presence of artificial knee joint, bilateral; Z86.14 Personal history of Methicillin resistant Staphylococcus aureus infection
CPT/HCPCS: 36415; 71046; 80053; 83735; 84443; 84484; 85025; 85610; 85730; 93005; 96360; 99285

== ENCOUNTER → 2020-01-01 | Outpatient (CLI) | payer OTHER ==
[2020-01-01 11:56] LABS: Basophils # (A) 0.1 k/uL (0-0.2); Basophils % (A) 1 %; Eosinophils # (A) 0.3 k/uL (0-0.7); Eosinophils % (A) 2 %; HCT 42.2 % (34.0-46.0); HGB 13.3 gm/dL (11.4-16.0); Lymphocytes # (A) 3.9 k/uL (1.0-4.8); Lymphocytes % (A) 29 %; MCH 31.7 pg (25.0-35.0); MCHC 31.5 g/dL (31.0-37.0); MCV 100.6 fL (80.0-100.0); Mean Platelet Volume 6.9; Monocytes # (A) 0.9 k/uL (0-1.0); Monocytes % (A) 7 %; Neutrophils % (A) 59 %; Platelet Count 456 k/uL (150-450); RDW 13.2 % (11.5-15.5); WBC 13.5 k/uL (3.8-10.6)
[2020-01-01 13:31] LABS: Erythrocyte Sedimentation Rate 18 mm/hr (0-20)
== END | disposition home or self-care (01) ==
LOC: LABWHC1 09:29
PROVIDERS: ATTEND Orthopaedic Surgery
DX: M25.561 Pain in right knee (principal)
CPT/HCPCS: 36415; 85025; 85652; 86140

== ENCOUNTER → 2020-01-02 | Outpatient (CLI) | payer OTHER ==
--- NOTE | 2020-01-04 15:16 | NM ---
EXAMINATION TYPE: NM bone 3 phase DATE OF EXAM: 01/02/2020 COMPARISON: NONE HISTORY: History of right knee replacement 3.5 years ago with pain for 6 months. Triple phase bone scintigraphy was performed following the injection of 24.4 mCi Tc 99m MDP. Immedia te images and 5.5 hours post injection images acquired. Imaging performed of the bilateral knees. FINDINGS: Mild increased uptake on arterial and soft tissue phase images to the right lower extremity versus le ft lower extremity is noted surrounding the prosthesis. Lucency from metallic prosthesis bilaterally is felt present. Delayed phase images show periprosthetic uptake bilaterally greater on the right preeti todd left and greatest involving the medial aspect of the right knee. IMPRESSION: As above. Three-phase radiotracer increased uptake around right knee prosthesis is nonspe cific. Infectious process is in differential.
== END | disposition home or self-care (01) ==
LOC: RADNMMAIN 07:17
PROVIDERS: ATTEND Orthopaedic Surgery
DX: R93.7 Abnormal findings on diagnostic imaging of other parts of musculoskeletal system (principal); T84.84XD Pain due to internal orthopedic prosthetic devices, implants and grafts, subsequent encounter; Z96.651 Presence of right artificial knee joint; Z88.1 Allergy status to other antibiotic agents; Z88.2 Allergy status to sulfonamides
CPT/HCPCS: 78315; A9503

== ENCOUNTER → 2020-01-11 | Outpatient (CLI) | payer OTHER ==
--- NOTE | 2020-01-11 14:20 | CONS ---
CONSULTATION DATE OF SERVICE: 01/11/2020 A 54-year-old lady who has been evaluated in the [facility] for possible obstructive sleep apnea-hypopnea syndrome. HISTORY OF PRESENT ILLNESS, SLEEP-WAKE EVALUATION: Patient usual sleep schedule on weekdays is from 9:30 p.m. to 5:10 am, on weekends from 10:30 p.m. to 930 - 9:45 am. No problems with falling asleep. No TV in bedroom. The patient usually sleeps on the side position. She wakes up from sleep multiple times and 3 episodes of nocturia. She also wakes up with episodes of dry mouth and panic attacks. In the morning, she wakes up tired, has difficulties pay attention. [place] Sleepiness Scale significantly increased to 13. No history of hypnopompic hallucinations, sleep paralysis or cataplexy. The patient may take naps 2 times a day in afternoon times. No history of vivid dreams during naps. Usually she does not feel refreshed after naps. PAST MEDICAL HISTORY: Positive for episodes of bradycardia, hypertension, hyperlipidemia, arthritis, asthma, headaches, acid reflux, iron deficiency anemia, depression, bipolar disorder. PAST SURGICAL HISTORY: Hiatal hernia, tubal ligation, hysterectomy, cholecystectomy and bilateral knee replacement, ankle surgery. SOCIAL HISTORY: Negative for using alcohol. Positive history of smoking for 35 years. Decreased amount of smoking to half pack a day presently. MEDICATIONS: Zyprexa 10 mg once a day in the evening, Ziac 5-6.25 mg once a day. BuSpar 10 mg twice a day, 62.5 mcg in the morning. Lamictal 100 mg twice a day, omeprazole 20 mg once a day, Lipitor 20 mg once a day. Flexeril 5 mg on p.r.n. basis. Naproxen 500 mg on p.r.n. basis. Allergy to BACTRIM and VANCOMYCIN. FAMILY HISTORY: Heart problems, hypertension, stroke, sleep apnea, mental illness. REVIEW OF SYSTEMS: Multiple awakenings from sleep, sleepiness during the day. PHYSICAL EXAM: lady without distress, BP 135/82, HR 72, RR 15, height 5, 3, weight 197, BMI 34.7, temperature 97.7, oxygen saturation at room air 98%. OROPHARYNX: Extremely low position of soft palate. Mallampati 4. Neck 13-1/2 inches in circumference. ABDOMEN: Obese. NECK: Supple, no JVD. Thyroid is not palpable. LUNGS: Clear to percussion and to auscultation. Good air exchange. No wheezing or rhonchi. HEART: S1, S2 regular. No murmurs, gallops, or rubs. EXTREMITIES: No clubbing or cyanosis. BOAT FINISHER: Awake, alert, and oriented X3. Cranial nerves 2 to 7 intact. There is no fasciculation or atrophy. noted. No focal deficits observed. IMPRESSION: 1. Snoring, multiple awakenings from sleep with nocturia, low position of soft palate, daytime sleepiness. [place] Sleepiness Scale increased to 13. Obstructive sleep apnea-hypopnea syndrome. 2. Hypertension. 3. Episodes of bradycardia. 4. History of asthma. 5. Hyperlipidemia. 6. History of arthritis. 7. Headaches. 8. Acid reflux. 9. History of iron deficiency anemia. 10.History of depression. 11.History of bipolar. 12.Status post hiatal hernia repair , 2018. 13.Status post tubal ligation in 1988. 14.Status post hysterectomy in 2013. 15.Status post cholecystectomy in 1989. 16.Status post bilateral knee surgery in 2016. 17.Status post corrective ankle surgery 1979. PLAN: 1. Polysomnography for evaluation of patient's breathing during sleep. 2. CPAP/BiPAP titration if sleep study confirms obstructive sleep apnea-hypopnea syndrome. 3. Preferable position during sleep on the side. 4. No driving if patient feels any sleepiness. 5. I will see patient for follow up visit to explain results of testing and following plan. 6. Smoking cessation program. Thank you very much for referring this patient for consultation. Sincerely, Hiram Menezes MD, PhD, FAASM Diplomat of [place] [employer] [place] [employer] Supervisor of [facility] MMODL / IJN: [id number] /
== END | disposition home or self-care (01) ==
LOC: SLEEP 12:51
PROVIDERS: ATTEND Internal Medicine
DX: G47.33 Obstructive sleep apnea (adult) (pediatric) (principal); I10 Essential (primary) hypertension; R00.1 Bradycardia, unspecified; E78.5 Hyperlipidemia, unspecified; K21.9 Gastro-esophageal reflux disease without esophagitis; Z86.59 Personal history of other mental and behavioral disorders; Z90.710 Acquired absence of both cervix and uterus; Z90.49 Acquired absence of other specified parts of digestive tract; Z98.890 Other specified postprocedural states; Z87.39 Personal history of other diseases of the musculoskeletal system and connective tissue; R51.9 Headache, unspecified; Z86.2 Personal history of diseases of the blood and blood-forming organs and certain disorders involving the immune mechanism
CPT/HCPCS: 99211

== ENCOUNTER → 2020-01-29 | Outpatient (CLI) | payer OTHER | END | disposition home or self-care (01) | LOC: LABPAT 10:08 | PROVIDERS: ATTEND Orthopaedic Surgery | DX: Z01.812 Encounter for preprocedural laboratory examination (principal) | CPT/HCPCS: 87070 ==

== ENCOUNTER 2020-02-20 08:00 | Inpatient (IN) | payer OTHER ==
[2020-02-13 14:54] VITALS: BMI 33.5
--- NOTE | 2020-02-19 09:23 | HP ---
HISTORY AND PHYSICAL CHIEF COMPLAINT: Right knee pain. 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 She notes pain with walking that is severe. She has tried bracing and medications without much relief. She notes intermittent instability. She underwent total knee arthroplasty in June of 2016. She denies significant wound healing problems after surgery. She denies fevers or chills. PAST MEDICAL HISTORY: Significant for arthritis, hypertension, COPD, bipolar disorder. PAST SURGICAL HISTORY: Significant bilateral total knee arthroplasty, hysterectomy, tubal ligation, ankle surgery, hernia repair, and tonsillectomy. CURRENT MEDICATIONS: 1. Lamictal. 2. Cyclobenzaprine. 3. Buspirone. 4. Lipitor. 5. Naprosyn. 6. Ziac. ALLERGIES: She has allergies to VANCOMYCIN and BACTRIM. FAMILY HISTORY: Significant for cancer. SOCIAL HISTORY: Significant for 1 pack per day tobacco use. REVIEW OF SYSTEMS: Sixteen-point review of systems otherwise reviewed and is noncontributory. PHYSICAL EXAMINATION: On examination, the patient is approximately 5 feet, 4 inches, 185 pounds of endomorphic habitus. HEENT exam is nonfocal. Neck is supple. She has painless passive motion of the right hip. Straight leg raise is negative. Active motion right knee -4 to 130. She is tender about the medial joint line and proximal tibia. She has some valgus laxity. No warmth or erythema is noted. She does have an antalgic gait pattern. Her distal neurovascular exam appears intact in the right lower extremity. X-rays of the right knee obtained in the office show a press-fit total knee arthroplasty with a metal-backed patella. Bone scan report showed increased uptake about the femoral and tibial components. Laboratory results show Sed rate 18. C-reactive protein less than 0.4. IMPRESSION: 1. Painful right total knee arthroplasty with aseptic loosening. 2. Chronic obstructive pulmonary disease. RECOMMENDATIONS: I talked to the patient at length regarding her condition and treatment options. At this point she is quite symptomatic and limited because of pain and instability. After thorough discussion, she opts to proceed with surgery. We will plan to proceed with revision right total knee arthroplasty. Risks and benefits were discussed at length in layman's terms. We will institute DVT prophylaxis postoperatively. MMODL / IJN: [id number] /
[~2020-02-20 08:00] MED LIST changes: +ACETAMINOPHEN TAB 500 MG TAB PO PRN; -DEXAMETHASONE SOD PHOSPHATE 10 MG/ML 1 ML VIAL IV ONE; +DEXAMETHASONE SOD PHOSPHATE 4 MG/ML 1 ML VIAL IV ONE; -HEPARIN SODIUM,PORCINE 5,000 UNIT/ML 1 ML VIAL SQ ONE; +LIDOCAINE 1% (10MG/ML) FOR IV START INTRADERMA PRN; -LIDOCAINE 1% 20 ML VIAL (10MG/ML) FOR IV START INTRADERMA PRN; +MELOXICAM 7.5 MG TAB PO PRN; +MIDAZOLAM 2 MG/2 ML VIAL IV PRN; +TRANEXAMIC ACID 1,000 MG in SODIUM CHLORIDE 0.9% 100 ML IVPB PRN; -fentaNYL (PF) 50 MCG/ML 2 ML AMP IV PRN
[2020-02-20] MEDS ORDERED: ROPIVACAINE 246.25 MG, EPINEPHrine 0.5 MG, KETOROLAC 30 MG, cloNIDine HCL/PF 80 MCG, WA... MISCELLANE PRN ×5 (12:13)
[2020-02-20] MEDS: LACTATED RINGERS 1,000 ML IV SCH (12:20)
[2020-02-20] MEDS ORDERED: fentaNYL (PF) 50 MCG/ML 2 ML AMP ONE (13:05)
[2020-02-20] MEDS ORDERED: diphenhydrAMINE 50 MG/ML 1 ML VIAL ONE (13:05)
[2020-02-20] MEDS ORDERED: LIDOCAINE 1% INJ 10MG/ML (20 ML MDV) ONE (13:05)
[2020-02-20] MEDS ORDERED: SODIUM CHLORIDE 0.9% 100 ML BAG ONE (13:05)
[2020-02-20] MEDS ORDERED: TRANEXAMIC ACID 1,000 MG/10 ML VIAL ONE (13:05)
[2020-02-20] MEDS ORDERED: MIDAZOLAM 2 MG/2 ML VIAL ONE (13:05)
[2020-02-20] MEDS ORDERED: KETAMINE 10 MG/ML 20 ML VIAL ONE (13:05)
[2020-02-20] MEDS ORDERED: PROPOFOL 10 MG/ML 20 ML VIAL IV ONE (13:05)
[2020-02-20] MEDS ORDERED: HYDROcodone/APAP 7.5-325MG 1 EACH TAB PO PRN (15:08)
[2020-02-20] MEDS ORDERED: ACETAMINOPHEN TAB 325 MG TAB PO PRN (15:08)
[2020-02-20] MEDS ORDERED: traMADol 50 MG TAB PO PRN (15:08)
[2020-02-20] MEDS ORDERED: MAGNESIUM HYDROXIDE 2,400 MG/10 ML CUP PO PRN (15:08)
[2020-02-20] MEDS ORDERED: HYDROmorphone 1 MG/ML 1 ML SYRINGE IVP PRN (15:08)
[2020-02-20] MEDS ORDERED: NALOXONE 0.4 MG/ML 1 ML VIAL IV PRN (15:08)
[2020-02-20] MEDS ORDERED: HYDROmorphone 0.5 MG/0.5 ML SYRINGE IVP PRN (15:08)
[2020-02-20] MEDS ORDERED: LACTATED RINGERS 1,000 ML IV ONE ×2 (15:20→17:30)
[2020-02-20] MEDS: HYDROmorphone 0.5 MG/0.5 ML SYRINGE IVP PRN ×3 (15:47→16:15)
--- NOTE | 2020-02-20 15:51 | P.OP ---
Date of Procedure: 02/20/20 Preoperative Diagnosis: Aseptic loosening right total knee arthroplasty Postoperative Diagnosis: Same Procedure(s) Performed: Revision right total kneefemoral and tibial components along with the articular surface Implants: Depuy TC3 size 3 cemented femoral component, size 2 cemented tibial component with 29 mm metaphyseal cone and 13 x 60 mm stem extension, 12.5 mm articular surface. Anesthesia: local, spinal Surgeon: Hunter Villegas Woods Rider #1: Jasen Joseph Estimated Blood Loss (ml): 100 Pathology: other (Synovial tissue) Condition: stable Disposition: PACU Indications for Procedure: The patient's a 54-year-old female who presents with progressive right knee pain after undergoing a previous right total knee arthroplasty. Clinically she was noted to have aseptic loosening of the femoral and tibial components. He discussion the risks and benefits of operative intervention was made with patient. She opted to proceed with surgery. Operative risks to include infection, neurovascular injury, development of blood clots, possible fracture, possible tendon rerupture, and possible need for subsequent procedures was discussed. Informed consent was obtained. Operative Findings: As below Description of Procedure: The patient was brought to the operating room, and after induction of spinal anesthesia the right lower extremity was prepped and draped in normal fashion. The tourniquet was inflated to 270 mmHg. The previous medial midline incision was utilized. Skin was incised sharply. Subcutaneous tissues were divided sharply. Electrocautery was used for hemostasis. A medial parapatellar arthrotomy was performed. Synovial tissue was sent for pathology was negative for acute inflammation. The patella was moved lateral. The medial soft tissues to include the superficial and deep portions medial collateral ligament were elevated subperiosteally. The articular surface was removed. Attention was paid towards first removing the femoral component. A small sagittal saw along with a small flexible osteotome was utilized to break the bone implant interface. The femoral components extracted with minimal bone loss. The tibial component was removed in a similar fashion. Again there was minimal bone loss. The tibial canal was reamed up to 13 mm. The 29 mm metaphyseal broach was used for the metaphyseal cone. The tibia sized most appropriate size 2. A cleanup cut was made flush with the top of the broach. A trial component was placed with a 13 x 60 mm tibial stem extension. I felt I had good bony coverage and overall alignment. The tibial component was then removed. Attention was then paid towards preparing the femur. This sized most were placed size 3. The cutting block was pinned in place. I planned on 4 mm posterior augments both medial and lateral. No significant distal bone loss was noted. The anterior, posterior, and chamfer cuts were made. The appropriate cutting block was placed for the notch cut. A sagittal saw was used to remove the bone in one fragment. Trial size 3 femoral component was placed with 4 mm posterior medial and lateral augments. There is good anterior to posterior medial to lateral fit. The trial femoral and tibial components were placed along with a 12.5 mm articular surface. I was able to obtain full flexion and extension with good stability with varus and valgus stress. The patella component was inspected. It was felt to be stable with minimal wear. There was good tracking. The trial components were then removed. Pulsatile lavage was utilized. The posterior soft tissues were injected with ropivacaine. The tibial component was then cemented in place and was fully seated. Excess cement was removed. The femoral component was cemented in place and was fully seated. The trial 12.5 mm articular surface was placed and the knee was put in full extension. After the cement had sufficiently hardened the final 12.5 mm articular surface was inserted. Again it was taken through range of motion and felt to be stable in flexion and extension with varus and valgus stress. The wound was irrigated with pulsatile lavage. The tourniquet was deflated with approximately 88 minutes total tourniquet time. The medial parapatellar arthrotomy was closed with #2 Ethibond suture. The subcutaneous tissues reapproximated interrupted 2-0 Vicryl sutures. The skin was reapproximated with 3-0 subcuticular strata fix suture. Skin tape and adhesive was applied. A sterile dressing was applied. The patient was awoken from sedation and transferred to recovery room in good condition. Blood loss was estimated at 100 mL. No complications were incurred. Sponge and needle counts were correct at the end the case. Sonu HEREDIA assisted of the major components the case to include exposure, extraction, implantation, and closure.
--- NOTE | 2020-02-20 16:02 | XR ---
Right knee HISTORY: Status post right knee arthroplasty Frontal and lateral views obtained of the right knee Patient is status post right knee arthroplasty. There is anatomic alignment. Lucency is present in th e soft tissues. IMPRESSION: Orthopedic follow-up.
[2020-02-20] MEDS ORDERED: CYCLOBENZAPRINE 5 MG TAB PO PRN (19:14)
[2020-02-20] MEDS ORDERED: ATORVASTATIN 20 MG TAB PO SCH (21:00)
[2020-02-20] MEDS ORDERED: OLANZapine 10 MG TAB PO SCH (21:00)
[2020-02-20] MEDS ORDERED: busPIRone HCl 10 MG TAB PO SCH (21:00)
[2020-02-20] MEDS ORDERED: SENNOSIDES-DOCUSATE SODIUM 1 EACH TAB PO SCH (21:00)
[2020-02-20] MEDS ORDERED: PANTOPRAZOLE 40 MG TABLET PO SCH (21:00)
[2020-02-20] MEDS: lamoTRIgine 100 MG TAB PO SCH (21:54)
[2020-02-20] MEDS: ONDANSETRON 4 MG/2 ML VIAL IVP PRN (21:58)
[2020-02-21] MEDS: LACTATED RINGERS 1,000 ML IV SCH (04:27)
[2020-02-21] MEDS: HYDROcodone/APAP 7.5-325MG 1 EACH TAB PO PRN ×2 (05:02→10:44)
[2020-02-21] MEDS: ONDANSETRON 4 MG/2 ML VIAL IVP PRN (05:03)
[2020-02-21 06:33] LABS: Basophils % (A) 0 %; Eosinophils % (A) 0 %; HCT 32.9 % (34.0-46.0); HGB 10.9 gm/dL (11.4-16.0); Lymphocytes % (A) 15 %; MCH 31.9 pg (25.0-35.0); MCV 96.6 fL (80.0-100.0); Monocytes # (A) 1.5 k/uL (0-1.0); Monocytes % (A) 8 %; Neutrophils # (A) 14.4 k/uL (1.3-7.7); Neutrophils % (A) 74 %; Platelet Count 322 k/uL (150-450); RDW 12.7 % (11.5-15.5); WBC 19.4 k/uL (3.8-10.6)
[2020-02-21 08:20] VITALS: BP 101/65; PULSE 61; RESP 18; TEMP 98.1
[2020-02-21] MEDS: lamoTRIgine 100 MG TAB PO SCH (08:22)
[2020-02-21] MEDS ORDERED: BISOPROLOL-HCTZ 5-6.25 MG 1 EACH TAB PO SCH (09:00)
[2020-02-21] MEDS ORDERED: RIVAROXABAN 10 MG TAB PO SCH (09:00)
[2020-02-21] MEDS ORDERED: FAMOTIDINE 20 MG TAB PO SCH (09:00)
[2020-02-21] MEDS ORDERED: busPIRone HCl 10 MG TAB PO SCH (09:00)
--- NOTE | 2020-02-21 09:50 | P.PN ---
Subjective Progress Note Date: 02/21/20 Principal diagnosis: Status post revision right total knee arthroplasty Patient is examined today at bedside, she is resting comfortably. Her pain is well-controlled, she states she is doing very well. She's been up ambulating to and from the bathroom. She is eager to work with physical therapy. She currently denies any headaches, lightheadedness, chest pain or shortness of breath. Objective - Vital Signs Vital signs: Vital Signs Temp 98.1 F 02/21/20 07:28 Pulse 61 02/21/20 07:28 Resp 18 02/21/20 07:28 BP 101/65 02/21/20 07:28 Pulse Ox 96 02/21/20 07:28 Intake & Output 02/20/20 02/21/20 02/21/20 18:59 06:59 18:59 Intake Total 1950 Output Total 500 Balance 1450 Weight 88 kg Intake: IV 1950 Output: Urine 400 Estimated Blood Loss 100 Other: # Voids 3 - Exam Right total knee arthroplasty: Incision is clean, dry, and intact. The [exofin fusion tape] is in good condition. [There is minimal soft tissue swelling and ecchymosis surrounding the medial and lateral aspects of the incision.] Calf is soft, no tenderness with palpation. Plantar flexion, dorsiflexion, EHL, FHL are intact. Sensory exam to light touch throughout the extremity is intact, [dorsal pedis pulses 2+.] - Labs CBC & Chem 7: 02/21/20 06:08 Labs: Abnormal Lab Results - Last 24 Hours (Table) 02/21/20 Range/Units 06:08 WBC 19.4 H (3.8-10.6) k/uL RBC 3.40 L (3.80-5.40) m/uL Hgb 10.9 L (11.4-16.0) gm/dL Hct 32.9 L (34.0-46.0) % Neutrophils # 14.4 H (1.3-7.7) k/uL Monocytes # 1.5 H (0-1.0) k/uL Assessment and Plan Assessment: Status post revision right total knee arthroplasty Plan: Pain control, plan for discharge home on [place] 7.5 mg/325 mg DVT prophylaxis, Jeison was 2.5 mg twice a day for 2 weeks Wound care and activity level instructions were discussed Icing techniques discussed Home health care to discharge Medical recommendations Plan for discharge home today Time with Patient: Less than 30
--- NOTE | 2020-02-21 09:52 | P.DS ---
Providers Date of admission: 02/20/20 11:51 Expected date of discharge: 02/21/20 Attending physician: Hunter Villegas Consults: 02/20/20 15:08 Consult Physician Routine Consulting Provider: Floresita Quan Reason/Comments: medical management Do you want consulting provider notified?: Yes Primary care physician: Floresita Quan Hospital Course: Date of admission: 02/20/2020 Date of discharge: 02/21/2020 Admission diagnosis: Status post revision right total knee arthroplasty Discharge diagnosis: Same Attending physician: Dr. Villegas Surgical procedures: Revision right total knee arthroplasty Brief history: Patient is a 54-year-old female with a history of a previous right total knee arthroplasty that had become loose and symptomatic. At this point patient has failed conservative treatment measures and has opted to proceed with a elective revision right total knee arthroplasty. Hospital course: Details of patient's surgery can be found in operative report. Patient tolerated the procedure well and was subsequently transported to orthopedic floor. Patient's orthopeidc and medical care was provided daily. Patient had daily laboratory tests performed for evaluation of overall blood counts. Patient had daily physical therapy to include strengthening range of motion as well as education with walker ambulation. Patient was treated with Xarelto for their postoperative DVT prophylaxis during their inpatient stay. Patient was noted to have a relatively uneventful postoperative course. Patient reported satisfactory pain control with oral pain medications by postoperative day 0. Patient showed satisfactory progress with physical therapy. Patient moved steadily through the program and had no difficulty meeting the goals by postoperative day 1. Given patient's otherwise satisfactory course and having met physical therapy goals, plan is to discharge patient home on postoperative day 1. Discharge condition/disposition: Patient will be discharged home in stable condition. Discharge medications: Instructions are given on resumption of patient's normal daily medications per primary care recommendation, in addition patient will be prescribed Holmes 7.5 mg/325 mg, Colace 100 mg, Eliquis 2.5 mg Discharge instructions: 1. Wound care and infection precautions, keep incision dry and covered while showering, no lotions, creams, moisturizers. No soaking, tubs, pools, hottubs. Do not scrub over the incision. 2. Weight-bear as tolerated with walker / cane until follow-up. 3. Ice and elevate when necessary. Do not exceed 20 minutes per hour with ice pack. 4. Utilize compression sleeve until seen at first follow up appointment. 5. Visiting nursing care. 6. Home physical therapy including home CPM. 7. Pain meds and anticoagulants per prescription. 8. Pain medication has potential to cause constipation. Increase oral fluid and fiber intake. Contact primary care provider if you have not had a bowel movement within 48 hours after discharge 9. No anti-inflammatory medication until discussed at first post operative visit, this including Motrin, Aleve, Mobic, Diclofenac. 10. Follow up in office at 2 weeks postop with Sonu Joseph PA-C 11. Follow up with your primary care doctor 7-10 days after discharge. 12. Contact [facility] with any questions, . Procedures: Revision right total knee arthroplasty Patient Condition at Discharge: Good Plan - Discharge Summary Discharge Rx Participant: Yes New Discharge Prescriptions: New Docusate [Colace] 100 mg PO DAILY #30 capsule Apixaban [Eliquis] 2.5 mg PO BID #60 tab HYDROcodone/APAP 7.5-325MG [Holmes 7.5] 1 - 2 each PO Q6HR PRN #42 tab PRN Reason: Pain No Action Cyclobenzaprine [Flexeril] 5 mg PO BID PRN PRN Reason: Muscle Pain Ondansetron [Zofran] 4 mg PO Q8HR PRN PRN Reason: Nausea Omeprazole [PriLOSEC] 20 mg PO HS lamoTRIgine [LaMICtal] 100 mg PO BID busPIRone HCl [Buspar] 10 mg PO HS busPIRone HCl [Buspar] 20 mg PO QAM Famotidine [Pepcid] 40 mg PO DAILY Atorvastatin [Lipitor] 20 mg PO HS OLANZapine [ZyPREXA] 10 mg PO HS Bisoprolol-Hctz 5-6.25 mg [Ziac 5-6.25 MG] 1 tab PO DAILY Umeclidinium [place] [Incruse Ellipta] 62.5 mcg INHALATION DAILY Discharge Medication List Cyclobenzaprine [Flexeril] 5 mg PO BID PRN 11/25/18 [History] Omeprazole [PriLOSEC] 20 mg PO HS 11/25/18 [History] Ondansetron [Zofran] 4 mg PO Q8HR PRN 11/25/18 [History] Atorvastatin [Lipitor] 20 mg PO HS 02/13/20 [History] Bisoprolol-Hctz 5-6.25 mg [Ziac 5-6.25 MG] 1 tab PO DAILY 02/13/20 [History] Famotidine [Pepcid] 40 mg PO DAILY 02/13/20 [History] OLANZapine [ZyPREXA] 10 mg PO HS 02/13/20 [History] Umeclidinium [place] [Incruse Ellipta] 62.5 mcg INHALATION DAILY 02/13/20 [History] busPIRone HCl [Buspar] 10 mg PO HS 02/13/20 [History] busPIRone HCl [Buspar] 20 mg PO QAM 02/13/20 [History] lamoTRIgine [LaMICtal] 100 mg PO BID 02/13/20 [History] Apixaban [Eliquis] 2.5 mg PO BID #60 tab 02/21/20 [Rx] Docusate [Colace] 100 mg PO DAILY #30 capsule 02/21/20 [Rx] HYDROcodone/APAP 7.5-325MG [Holmes 7.5] 1 - 2 each PO Q6HR PRN #42 tab 02/21/20 [Rx] Follow up Appointment(s)/Referral(s): Jasen Joseph PAC [PHYSICIAN MEDICAL REIMBURSEMENT MANAGER] - 03/07/20 9:30 am (With Bakari) Patient Instructions/Handouts: Revision Total Joint Arthroplasty (DC) Activity/Diet/Wound Care/Special Instructions: Orthopedic Discharge Instructions: 1. Wound care and infection precautions, keep incision dry and covered while showering, no lotions, creams, moisturizers. No soaking, pools, hot tubs. Do not scrub over incision. 2. Weight-bear as tolerated with walker / cane until follow-up. 3. Ice and elevate when necessary. Do not exceed 20 minutes per hour with ice pack. 4. Utilize compression sleeve until seen at first follow up appointment. 5. Pain meds and anticoagulants per prescription. 6. Pain medication has potential to cause constipation. Increase oral fluid and fiber intake. Contact primary care provider if you have not had a bowel movement within 48 hours after discharge. 7. No anti-inflammatory medication until discussed at first post operative visit, this including Motrin, Aleve, Mobic, Diclofenac 8. Follow up in office at 2 weeks postop with Sonu Joseph PA-C 9. Follow up with your primary care doctor 7-10 days after discharge. 10. Contact [facility] with any questions, . Discharge Disposition: HOME WITH HOME HEALTH SERVICES
--- NOTE | 2020-02-21 22:31 | P.CONS ---
History of Present Illness - Reason for Consult Consult date: 02/21/20 medical eval - Chief Complaint R knee pain - History of Present Illness Analisa Blackwell is a 54 yo F with PMH of bipolar disorder, HTN, HLD who is admitted for a revision R TKA. She is POD#1 today, doing well with minimal pain. She is working with PT and ambulating. Denies chest pain, shortness of breath, fever, chills. Review of Systems All systems: negative Constitutional: Denies chills, Denies fever Eyes: denies blurred vision, denies pain Ears, nose, mouth and throat: Denies headache, Denies sore throat Cardiovascular: Denies chest pain, Denies shortness of breath Respiratory: Denies cough Gastrointestinal: Denies abdominal pain, Denies diarrhea, Denies nausea, Denies vomiting Genitourinary: Denies dysuria, Denies hematuria Musculoskeletal: Reports as per HPI, Reports limitation of motion, Reports myalgias Integumentary: Denies pruritus, Denies rash Neurological: Denies numbness, Denies weakness Psychiatric: Denies anxiety, Denies depression Endocrine: Denies fatigue, Denies weight change 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, TEMPORAL LOBE EPILEPSY (LAST SEIZURE 32 YRS AGO), SINUS TACHYCARDIA, STATES WBC RUNS HIGH (SEES DR MERAZ), HX OF FX BACK 1993, CONSTIPATION & DIARRHEA, NAUSEA., History of Any Multi-Drug Resistant Organisms: MRSA Year Discovered:: 02/08/2014 MDRO Source:: CYST AT TOP OF BUTTOCKS Past Surgical History: Adenoidectomy, Cholecystectomy, Hernia Repair, Hysterectomy, Joint Replacement, Orthopedic Surgery, Tonsillectomy, Tubal Ligation, Uterine Ablation Additional Past Surgical History / Comment(s): I & D CYST LIKE BOIL AT TOP OF BUTTOCKS, RT ANKLE SURGERY, CTR-WINDY GANGLION CYSTS .,RT KNEE ARTHROSCOPY X 2, LT KNEE ARTHROSCOPY X1, HIATAL HERNIA REPAIR x2, BILATERAL KNEE REPLACEMENTS Past Anesthesia/Blood Transfusion Reactions: Postoperative Nausea & Vomiting (PONV) Additional Past Anesthesia/Blood Transfusion Reaction / Comm: STATES ALWAYS NAUSEATED. Past Psychological History: Bipolar, Depression Smoking Status: Current some day smoker Past Alcohol Use History: Rare Additional Past Alcohol Use History / Comment(s): SMOKES 1 PPD. has smoked for 35 yrs Past Drug Use History: Marijuana Additional Drug Use History / Comment(s): SMOKES MARIJUANA DAILY-instructed to refrain from use for at least 24 hours prior to procedure - Past Family History Father Family Medical History: Unable to Obtain Mother Family Medical History: Cancer Additional Family Medical History / Comment(s): BREAST CANCER Medications and Allergies Home Medications Medication Instructions Recorded Confirmed Type Cyclobenzaprine [Flexeril] 5 mg PO BID PRN 11/25/18 02/13/20 History Omeprazole [PriLOSEC] 20 mg PO HS 11/25/18 02/13/20 History Ondansetron [Zofran] 4 mg PO Q8HR PRN 11/25/18 02/13/20 History Atorvastatin [Lipitor] 20 mg PO HS 02/13/20 02/13/20 History Bisoprolol-Hctz 5-6.25 mg [Ziac 1 tab PO DAILY 02/13/20 02/13/20 History 5-6.25 MG] Famotidine [Pepcid] 40 mg PO DAILY 02/13/20 02/13/20 History OLANZapine [ZyPREXA] 10 mg PO HS 02/13/20 02/13/20 History Umeclidinium [place] [Incruse 62.5 mcg INHALATION DAILY 02/13/20 02/13/20 History Ellipta] busPIRone HCl [Buspar] 10 mg PO HS 02/13/20 02/13/20 History busPIRone HCl [Buspar] 20 mg PO QAM 02/13/20 02/13/20 History lamoTRIgine [LaMICtal] 100 mg PO BID 02/13/20 02/13/20 History Apixaban [Eliquis] 2.5 mg PO BID #60 tab 02/21/20 Rx Docusate [Colace] 100 mg PO DAILY #30 capsule 02/21/20 Rx HYDROcodone/APAP 7.5-325MG [[place] 1 - 2 each PO Q6HR PRN #42 tab 02/21/20 Rx 7.5] Allergies Allergy/AdvReac Type Severity Reaction Status Date / Time sulfamethoxazole Allergy Unknown ITCHING, Verified 02/20/20 12:12 [From Bactrim] FELT LIKE BUGS CRAWLING ON SKIN trimethoprim [From Bactrim] Allergy Unknown ITCHING, Verified 02/20/20 12:12 FELT LIKE BUGS CRAWLING ON SKIN adhesive AdvReac TURNS SKIN Verified 02/20/20 12:12 RED AND SKIN PEELS OFF aspartame AdvReac Nausea Verified 02/20/20 12:12 [From Nutrasweet Aspartame] codeine AdvReac Dyspnea Verified 02/20/20 12:12 saccharin AdvReac Nausea Verified 02/20/20 12:12 vancomycin AdvReac CAUSED PT Verified 02/20/20 12:12 TO GO INTO RENAL FAILURE PER PT Physical Exam Vitals: Vital Signs Temp Pulse Resp BP Pulse Ox 02/21/20 07:28 98.1 F 61 18 101/65 96 02/21/20 07:02 65 02/21/20 03:28 98.2 F 65 124/74 94 L Intake and Output 02/21/20 02/21/20 02/21/20 06:59 14:59 22:59 Other: # Voids 3 General: well nourished, well developed, NAD. Vitals reviewed Eyes: PERRL, EOMI, conjunctiva normal HENT: normocephalic, mucus membranes moist Neck: supple, no JVD Lungs: normal respiratory effort, no wheezes or rales CV: Regular rate and rhythm, no murmur. Peripheral pulses 2+ Abdomen: soft, nondistended, no organomegaly Lymph: no cervical or axillary LAD Skin: warm and dry. Neuro: A&Ox3, normal mood and affect Results CBC & Chem 7: 02/21/20 06:08 Labs: Abnormal Lab Results - Last 24 Hours (Table) 02/21/20 Range/Units 06:08 WBC 19.4 H (3.8-10.6) k/uL RBC 3.40 L (3.80-5.40) m/uL Hgb 10.9 L (11.4-16.0) gm/dL Hct 32.9 L (34.0-46.0) % Neutrophils # 14.4 H (1.3-7.7) k/uL Monocytes # 1.5 H (0-1.0) k/uL Assessment and Plan (1) Arthritis of right knee Status: Acute Code(s): M17.11 - UNILATERAL PRIMARY OSTEOARTHRITIS, RIGHT KNEE SNOMED Code(s): 126090751 (2) History of revision of total knee arthroplasty Status: Acute Code(s): Z96.659 - PRESENCE OF UNSPECIFIED ARTIFICIAL KNEE JOINT SNOMED Code(s): 300702972 Plan: 1. R knee OA and failed TKA. s/p revision TKA. Mangement per ortho, she is medically stable for discharge 2. HTN. Continue home antihypertensive 3. HLD. Continue lipitor 4. Bipolar disorder. Continue lamictal and zyprexa
== END 2020-02-21 12:05 | disposition home health service (06) | DRG 468 ==
LOC: 2ORMAIN 11:51 → 4SSUR 17:31
PROVIDERS: ADMIT Orthopaedic Surgery; ATTEND Orthopaedic Surgery
PROC: 0SPC0JZ Removal of Synthetic Substitute from Right Knee Joint, Open Approach (ICD-10-PCS; principal; 2020-02-20 13:25)
PROC: 0SRC0J9 Replacement of Right Knee Joint with Synthetic Substitute, Cemented, Open Approach (ICD-10-PCS; principal; 2020-02-20 13:25)
DX: T84.032A Mechanical loosening of internal right knee prosthetic joint, initial encounter (principal); E78.5 Hyperlipidemia, unspecified; F17.200 Nicotine dependence, unspecified, uncomplicated; F31.9 Bipolar disorder, unspecified; G40.909 Epilepsy, unspecified, not intractable, without status epilepticus; I10 Essential (primary) hypertension; J44.9 Chronic obstructive pulmonary disease, unspecified; Y83.1 Surgical operation with implant of artificial internal device as the cause of abnormal reaction of the patient, or of later complication, without mention of misadventure at the time of the procedure; M17.11 Unilateral primary osteoarthritis, right knee; K21.9 Gastro-esophageal reflux disease without esophagitis; Z79.01 Long term (current) use of anticoagulants; Z79.899 Other long term (current) drug therapy; Z80.3 Family history of malignant neoplasm of breast; Z90.710 Acquired absence of both cervix and uterus; Z88.1 Allergy status to other antibiotic agents; Z80.9 Family history of malignant neoplasm, unspecified; Z86.14 Personal history of Methicillin resistant Staphylococcus aureus infection; Z90.49 Acquired absence of other specified parts of digestive tract; Z98.51 Tubal ligation status; Z98.890 Other specified postprocedural states; Z90.89 Acquired absence of other organs; Z88.2 Allergy status to sulfonamides; Z88.5 Allergy status to narcotic agent; Z88.8 Allergy status to other drugs, medicaments and biological substances
CPT/HCPCS: 85025; 88305; 88331

== ENCOUNTER → 2020-03-07 | Outpatient (CLI) | payer OTHER ==
[2020-03-07 11:12] LABS: Basophils # (A) 0.1 k/uL (0-0.2); Basophils % (A) 1 %; Eosinophils # (A) 0.4 k/uL (0-0.7); Eosinophils % (A) 3 %; HCT 38.5 % (34.0-46.0); HGB 12.6 gm/dL (11.4-16.0); Lymphocytes # (A) 3.4 k/uL (1.0-4.8); Lymphocytes % (A) 25 %; MCH 31.6 pg (25.0-35.0); MCHC 32.6 g/dL (31.0-37.0); MCV 96.9 fL (80.0-100.0); Mean Platelet Volume 6.8; Monocytes # (A) 0.9 k/uL (0-1.0); Monocytes % (A) 7 %; Neutrophils # (A) 8.6 k/uL (1.3-7.7); Neutrophils % (A) 62 %; Platelet Count 642 k/uL (150-450); RBC 3.98 m/uL (3.80-5.40); WBC 13.8 k/uL (3.8-10.6)
[2020-03-07 12:35] LABS: Erythrocyte Sedimentation Rate 29 mm/hr (0-20)
== END | disposition home or self-care (01) ==
LOC: LABWHC1 10:05
PROVIDERS: ATTEND Orthopaedic Surgery
DX: T81.30XD Disruption of wound, unspecified, subsequent encounter (principal)
CPT/HCPCS: 36415; 85025; 85652; 86140

== ENCOUNTER → 2020-03-08 | Day surgery (SDC) | payer OTHER ==
--- NOTE | 2020-03-07 10:38 | HP ---
HISTORY AND PHYSICAL CHIEF COMPLAINT: Right knee wound persistent drainage. 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 She notes she has been quite active. She denies fevers or chills. PAST MEDICAL HISTORY: Significant for arthritis, hypertension, asthma, and anxiety/depression. PAST SURGICAL HISTORY: Significant for previous ankle surgery, tubal ligation, hernia repair, right and left knee total knee arthroplasty with subsequent revision of the right total knee arthroplasty in addition to tonsillectomy. CURRENT MEDICATIONS: 1. Buspirone. 2. Cyclobenzaprine. 3. Lamictal. 4. Lipitor. 5. Naprosyn. 6. Ziac. 7. Zyprexa. FAMILY HISTORY: Significant for cancer. SOCIAL HISTORY: Significant for 1 pack per day tobacco use. REVIEW OF SYSTEMS: Sixteen-point review of systems otherwise is reviewed and is noncontributory. PHYSICAL EXAMINATION: On examination, the patient is well-developed, well-nourished female of endomorphic habitus. HEENT exam is nonfocal. Neck is supple. She has painless passive motion of the right hip. Straight leg raise is negative. Active motion right knee -10 degrees full extension to 120 degrees of flexion. The incision appears to be healing except 3 mm diastasis of the proximal incision. There is moderate serosanguineous drainage. There is no surrounding erythema or warmth. No real joint line tenderness is noted. Homans is negative. Her distal neurovascular exam appears intact in the right lower extremity. IMPRESSION: 1. Status post right knee revision arthroplasty. 2. Persistent drainage, right knee. RECOMMENDATIONS: I talked to the patient at length regarding her condition and treatment options. At this point, we will plan on proceeding with incision and drainage with irrigation and debridement of her superficial right knee incision with wound revision. Risks and benefits were discussed at length in layman's terms. We will likely perform that as an outpatient procedure. MMODL / IJN: [id number] /
[2020-03-07 11:03] VITALS: BMI 34.3
[~2020-03-08] MED LIST changes: -ACETAMINOPHEN TAB 500 MG TAB PO PRN; +HYDROcodone/APAP 7.5-325MG 1 EACH TAB ONE; +HYDROcodone/APAP 7.5-325MG 1 EACH TAB PO ONE; +HYDROmorphone (PF) 1 MG/ML ONE; +HYDROmorphone 0.5 MG/0.5 ML SYRINGE IVP PRN; +LACTATED RINGERS 1,000 ML IV ONE; +LACTATED RINGERS 1,000 ML IV SCH; +LIDOCAINE 1% INJ 10MG/ML (20 ML MDV) ONE; -MELOXICAM 7.5 MG TAB PO PRN; -MIDAZOLAM 2 MG/2 ML VIAL IV PRN; +MIDAZOLAM 2 MG/2 ML VIAL ONE; +PROPOFOL 10 MG/ML 20 ML VIAL IV ONE; +SUCCINYLCHOLINE CHLORIDE 100 MG/5 ML SYR IV ONE; -TRANEXAMIC ACID 1,000 MG in SODIUM CHLORIDE 0.9% 100 ML IVPB PRN; +fentaNYL (PF) 50 MCG/ML 2 ML AMP ONE
--- NOTE | 2020-03-08 12:56 | P.OP ---
Date of Procedure: 03/08/20 Preoperative Diagnosis: Right knee wound dehiscence/seroma status post total knee arthroplasty Postoperative Diagnosis: Same Procedure(s) Performed: Incision and drainage with irrigation and debridement right knee wound dehiscence/seroma Anesthesia: MEREDITH Surgeon: Hunter Villegas Estimated Blood Loss (ml): 10 Pathology: other (Superficial cultures) Condition: stable Disposition: PACU Indications for Procedure: The patient's a 54-year-old female who with in the past 2 weeks underwent revision right total knee arthroplasty who presented with 3-4 mm dehiscence of her central wound with persistent bloody drainage. A discussion of the risks and benefits of operative intervention was made with patient. She opted to proceed. Operative risks to include persistence of infection and need for subsequent procedures was discussed. Informed consent was obtained. Operative Findings: As below Description of Procedure: The patient was brought to the operating room, and after induction general anesthesia the right lower extremity was prepped and draped in a normal fashion. The tourniquet was inflated to 250 mmHg. The wound dehiscence involving the central portion of the incision measuring 5 x 3 mm. The incision was extended proximally 5 cm. Skin was incised sharply. Subcutaneous tissues were divided sharply. A large seroma was encountered. The medial retinacular repair appeared to be intact. I did obtain cultures. The wound edges were sharply debrided with a scalpel down to a bleeding surface. This was taken down to level of the prepatellar region/bursa. Pulsatile lavage was then utilized copiously irrigating the wound. The skin was then loosely reapproximated with simple 3-0 nylon sutures. A sterile dressing was applied. The tourniquet was deflated with less than 30 minutes total tourniquet time. The patient was awoken from general anesthesia and transferred to recovery room in good condition. Blood loss was estimated at 10 mL. No complications were incurred. Sponge and needle counts were correct at the end of the case.
[2020-03-08 13:12] VITALS: TEMP 97.8
[2020-03-08 13:49] VITALS: RESP 17
[2020-03-08 14:07] VITALS: BP 132/88; PULSE 67
--- NOTE | 2020-03-12 12:16 | CDI ---
Date: 03.12.20 CDS/Occupational Health Nurse Manager Name: Светлана Roca Phone: If any questions, call Dilcia Lanier Medical Doctor at [phone] Patient Name: Analisa Blackwell Admit Date 03.08.20 Discharge Date: 03.08.20 ATTENTION: The [facility] Coding Staff appreciate your assistance in clarifying documentation. Please respond to the clarification below the line at the bottom and electronically sign. The [facility] Coding staff will review the response and follow-up if needed. Please note: Queries are made part of the Legal Health Record. If you have any questions, please contact the Medical Doctor. Dear Dr. Villegas In order to code to the greatest specificity and for the greatest reimbursement I need the following information: Please specify the total area debrided. Thank you for your kind consideration. a 6 cm area in the prepatellar region was debrided using a scalpel down to the deep subcutaneous tissue. MTDD
--- NOTE | 2020-03-14 11:44 | CDI ---
Date: 03.14.20 CDS/Water Purifier Operator Name: Светлана Roca Phone: If any questions, call Dilcia Lanier Orthotic Aide at [phone] Patient Name: Analisa Blackwell Admit Date 03.08.20 Discharge Date: 03.08.20 ATTENTION: The [facility] Coding Staff appreciate your assistance in clarifying documentation. Please respond to the clarification below the line at the bottom and electronically sign. The [facility] Coding staff will review the response and follow-up if needed. Please note: Queries are made part of the Legal Health Record. If you have any questions, please contact the Orthotic Aide. Dear Dr. Villegas In order to code to the greatest specificity and for the greatest reimbursement I need the following information: You have documented in your Op note for procedure I&D but in the description of procedure there is no mention of the I&D, you have documented a large seroma was encountered. Please clarify if the I&D was performed on the seroma. Thank you for your kind consideration. The seroma was evacuated and irrigation was performed. GERRYD
== END | disposition home or self-care (01) ==
LOC: OR 09:44
PROVIDERS: ATTEND Orthopaedic Surgery
DX: T81.31XA Disruption of external operation (surgical) wound, not elsewhere classified, initial encounter (principal); L76.34 Postprocedural seroma of skin and subcutaneous tissue following other procedure; M19.90 Unspecified osteoarthritis, unspecified site; I10 Essential (primary) hypertension; F41.9 Anxiety disorder, unspecified; F17.210 Nicotine dependence, cigarettes, uncomplicated; J44.9 Chronic obstructive pulmonary disease, unspecified; G47.33 Obstructive sleep apnea (adult) (pediatric); F31.9 Bipolar disorder, unspecified; K21.9 Gastro-esophageal reflux disease without esophagitis; Z88.2 Allergy status to sulfonamides; Z88.1 Allergy status to other antibiotic agents; Z98.890 Other specified postprocedural states; Z98.51 Tubal ligation status; Z96.653 Presence of artificial knee joint, bilateral; Z90.89 Acquired absence of other organs; Z79.899 Other long term (current) drug therapy; Z79.891 Long term (current) use of opiate analgesic; Z97.2 Presence of dental prosthetic device (complete) (partial); Z91.09 Other allergy status, other than to drugs and biological substances; Z88.5 Allergy status to narcotic agent; Z88.8 Allergy status to other drugs, medicaments and biological substances; Z86.79 Personal history of other diseases of the circulatory system; Z86.69 Personal history of other diseases of the nervous system and sense organs; Z79.01 Long term (current) use of anticoagulants; Z80.9 Family history of malignant neoplasm, unspecified
CPT/HCPCS: 11042; 10140; 87070; 87205; 87075; 87102; 87077; 87186; J2250; J1100; J0690; J2405; J2001; J3010; J1170; J0330; J2704

== ENCOUNTER → 2020-03-15 | Outpatient (CLI) | payer OTHER ==
[2020-03-15 18:35] LABS: Basophils # (A) 0.12 X 10*3/uL (0.00-0.10); Basophils % (A) 1.1 %; Eosinophils # (A) 0.46 X 10*3/uL (0.04-0.35); Eosinophils % (A) 4.2 %; HCT 38.1 % (37.2-46.3); HGB 11.6 g/dL (12.0-15.0); Lymphocytes # (A) 3.93 X 10*3/uL (0.90-5.00); Lymphocytes % (A) 35.8 %; MCH 30.5 pg (27.0-32.0); MCHC 30.4 g/dL (32.0-37.0); MCV 100.3 fL (80.0-97.0); Mean Platelet Volume 9.3 fL (9.5-12.2); Monocytes # (A) 1.17 X 10*3/uL (0.20-1.00); Monocytes % (A) 10.7 %; Neutrophils # (A) 5.26 X 10*3/uL (1.80-7.70); Neutrophils % (A) 47.8 %; Platelet Count 549 X 10*3/uL (140-440); RDW 13.9 % (11.5-14.5); WBC 10.98 X 10*3/uL (4.50-10.00)
[2020-03-15 21:03] LABS: Erythrocyte Sedimentation Rate 31 mm/Hr (0-30)
== END | disposition home or self-care (01) ==
LOC: LABWHC1 09:58
PROVIDERS: ATTEND Orthopaedic Surgery
DX: T84.53XA Infection and inflammatory reaction due to internal right knee prosthesis, initial encounter (principal)
CPT/HCPCS: 36415; 85025; 85652; 86140

== ENCOUNTER → 2020-04-19 | Outpatient (CLI) | payer OTHER ==
[2020-04-19 23:12] LABS: Basophils # (A) 0.07 X 10*3/uL (0.00-0.10); Basophils % (A) 0.7 %; Eosinophils # (A) 0.12 X 10*3/uL (0.04-0.35); Eosinophils % (A) 1.3 %; HCT 39.2 % (37.2-46.3); HGB 12.2 g/dL (12.0-15.0); Lymphocytes # (A) 3.25 X 10*3/uL (0.90-5.00); Lymphocytes % (A) 34.5 %; MCH 29.5 pg (27.0-32.0); MCHC 31.1 g/dL (32.0-37.0); MCV 94.9 fL (80.0-97.0); Mean Platelet Volume 9.6 fL (9.5-12.2); Monocytes # (A) 0.74 X 10*3/uL (0.20-1.00); Monocytes % (A) 7.8 %; Neutrophils # (A) 5.21 X 10*3/uL (1.80-7.70); Neutrophils % (A) 55.3 %; Platelet Count 430 X 10*3/uL (140-440); RBC 4.13 X 10*6/uL (4.10-5.20); RDW 13.7 % (11.5-14.5); WBC 9.43 X 10*3/uL (4.50-10.00)
[2020-04-20 03:52] LABS: Erythrocyte Sedimentation Rate 30 mm/Hr (0-30)
== END | disposition home or self-care (01) ==
LOC: LABWHC1 15:56
PROVIDERS: ATTEND Orthopaedic Surgery
DX: R79.82 Elevated C-reactive protein (CRP) (principal)
CPT/HCPCS: 36415; 85025; 85652; 86140

== ENCOUNTER → 2020-06-25 | Outpatient (CLI) | payer OTHER ==
[2020-06-25 21:38] LABS: Basophils # (A) 0.09 X 10*3/uL (0.00-0.10); Basophils % (A) 0.9 %; Eosinophils # (A) 0.22 X 10*3/uL (0.04-0.35); Eosinophils % (A) 2.1 %; HCT 40.1 % (37.2-46.3); HGB 12.6 g/dL (12.0-15.0); Lymphocytes # (A) 3.38 X 10*3/uL (0.90-5.00); Lymphocytes % (A) 32.3 %; MCH 29.8 pg (27.0-32.0); MCHC 31.4 g/dL (32.0-37.0); MCV 94.8 fL (80.0-97.0); Mean Platelet Volume 9.7 fL (9.5-12.2); Monocytes # (A) 1.07 X 10*3/uL (0.20-1.00); Monocytes % (A) 10.2 %; Neutrophils # (A) 5.67 X 10*3/uL (1.80-7.70); Neutrophils % (A) 54.3 %; Platelet Count 425 X 10*3/uL (140-440); RBC 4.23 X 10*6/uL (4.10-5.20); RDW 15.5 % (11.5-14.5); WBC 10.45 X 10*3/uL (4.50-10.00)
[2020-06-25 22:26] LABS: Erythrocyte Sedimentation Rate 15 mm/Hr (0-30)
== END | disposition home or self-care (01) ==
LOC: LABWHC1 13:27
PROVIDERS: ATTEND Orthopaedic Surgery
DX: M25.50 Pain in unspecified joint (principal)
CPT/HCPCS: 36415; 85025; 85652; 86140

== ENCOUNTER 2021-07-06 09:35 | Emergency (ER) | payer OTHER ==
[2021-07-06 09:44] VITALS: BP 147/91; PULSE 72; RESP 18; TEMP 98
--- NOTE | 2021-07-06 10:25 | XR ---
EXAMINATION TYPE: XR hand complete LT DATE OF EXAM: 07/06/2021 COMPARISON: None HISTORY: Pain, swelling TECHNIQUE: Three-view left hand FINDINGS: No acute fractures evident. There may be some subluxation of the first metacarpal on the ca rpal row. Degenerative joint changes are present. Remaining joint spaces are preserved. Soft tissues appear normal. IMPRESSION: 1. Advanced degenerative joint changes first carpal metacarpal junction with some subluxation of the metacarpal.
--- NOTE | 2021-07-06 10:33 | ED ---
General Adult HPI - General Chief complaint: Extremity Injury, Upper Stated complaint: Lt Hand Swelling Time Seen by Provider: 07/06/21 10:15 Source: patient, RN notes reviewed Mode of arrival: ambulatory Limitations: no limitations - History of Present Illness Initial comments: Patient is a pleasant 56-year-old female presenting to the emergency department with concerns for left hand injury. Incident occurred 11 days ago. Patient fell carrying groceries. Patient landed on her left hand. No other area of injury or concern. Discomfort was relatively diffuse. However now discomfort is mostly in the thenar eminence with swelling. Patient also has some swelling of the index and middle fingers. Fourth and fifth digits are currently symptom-free. 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 - Related Data Home Medications Medication Instructions Recorded Confirmed Omeprazole [PriLOSEC] 20 mg PO HS 11/25/18 03/08/20 Ondansetron [Zofran] 8 mg PO Q8HR PRN 11/25/18 03/08/20 Atorvastatin [Lipitor] 20 mg PO HS 02/13/20 03/08/20 Bisoprolol-Hctz 5-6.25 mg [Ziac 1 tab PO DAILY 02/13/20 03/08/20 5-6.25 MG] Famotidine [Pepcid] 40 mg PO DAILY 02/13/20 03/08/20 OLANZapine [ZyPREXA] 10 mg PO HS 02/13/20 03/08/20 Umeclidinium [place] [Incruse 62.5 mcg INHALATION DAILY 02/13/20 03/08/20 Ellipta] busPIRone HCl [Buspar] 10 mg PO HS 02/13/20 03/08/20 busPIRone HCl [Buspar] 20 mg PO QAM 02/13/20 03/08/20 lamoTRIgine [LaMICtal] 100 mg PO BID 02/13/20 03/08/20 Docusate [Colace] 100 mg PO BID 03/07/20 03/08/20 Previous Rx's Medication Instructions Recorded Apixaban [Eliquis] 2.5 mg PO BID #60 tab 02/21/20 HYDROcodone/APAP 7.5-325MG [[place] 1 - 2 each PO Q6HR PRN #42 tab 02/21/20 7.5] Cephalexin [Keflex] 500 mg PO Q6HR 1 Days #40 cap 03/08/20 HYDROcodone/APAP 7.5-325MG [[place] 1 tab PO Q4-6H PRN 7 Days #21 tab 03/08/20 7.5-325] Allergies Allergy/AdvReac Type Severity Reaction Status Date / Time sulfamethoxazole Allergy Unknown ITCHING, Verified 07/06/21 09:44 [From Bactrim] FELT LIKE BUGS CRAWLING ON SKIN trimethoprim [From Bactrim] Allergy Unknown ITCHING, Verified 07/06/21 09:44 FELT LIKE BUGS CRAWLING ON SKIN adhesive AdvReac TURNS SKIN Verified 07/06/21 09:44 RED AND SKIN PEELS OFF aspartame AdvReac Nausea Verified 07/06/21 09:44 [From Nutrasweet Aspartame] codeine AdvReac Dyspnea, Verified 07/06/21 09:44 (can take tablet - not liquid) saccharin AdvReac Nausea Verified 07/06/21 09:44 vancomycin AdvReac CAUSED PT Verified 07/06/21 09:44 TO GO INTO RENAL FAILURE PER PT Review of Systems ROS Statement: Those systems with pertinent positive or pertinent negative responses have been documented in the HPI. ROS Other: All systems not noted in ROS Statement are negative. 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, TEMPORAL LOBE EPILEPSY (LAST SEIZURE 32 YRS AGO), SINUS TACHYCARDIA, STATES WBC RUNS HIGH (SEES DR MERAZ), HX OF FX BACK 1993, CONSTIPATION & DIARRHEA, NAUSEA., History of Any Multi-Drug Resistant Organisms: MRSA Date of last positivie culture/infection: 02/08/2014 MDRO Source:: CYST AT TOP OF BUTTOCKS Past Surgical History: Adenoidectomy, Cholecystectomy, Hernia Repair, Hysterectomy, Joint Replacement, Orthopedic Surgery, Tonsillectomy, Tubal Ligation, Uterine Ablation Additional Past Surgical History / Comment(s): I & D CYST LIKE BOIL AT TOP OF BUTTOCKS, RT ANKLE SURGERY, CTR-WINDY GANGLION CYSTS .,RT KNEE ARTHROSCOPY X 2, LT KNEE ARTHROSCOPY X1, HIATAL HERNIA REPAIR x2, BILATERAL KNEE REPLACEMENTS Past Anesthesia/Blood Transfusion Reactions: Postoperative Nausea & Vomiting (PONV) Additional Past Anesthesia/Blood Transfusion Reaction / Comment(s): STATES ALWAYS NAUSEATED. Past Psychological History: Bipolar, Depression Smoking Status: Current some day smoker Past Alcohol Use History: Rare Past Drug Use History: Marijuana - Past Family History Father Family Medical History: Unable to Obtain Mother Family Medical History: Cancer Additional Family Medical History / Comment(s): BREAST CANCER General Exam Limitations: no limitations General appearance: alert, in no apparent distress Head exam: Present: normocephalic Eye exam: Present: normal appearance Neck exam: Present: normal inspection. Absent: tenderness Respiratory exam: Present: normal lung sounds bilaterally Cardiovascular Exam: Present: regular rate, normal rhythm GI/Abdominal exam: Present: soft. Absent: tenderness Extremities exam: Present: other (Thenar swelling with tenderness between the thumb and index finger. No significant bony tenderness. Minimal swelling of the index and middle finger. Normal range of motion. Good strength. Sensation intact. No color change.) Neurological exam: Present: alert. Absent: motor sensory deficit Psychiatric exam: Present: normal affect, normal mood Skin exam: Present: normal color Course Vital Signs 07/06/21 09:38 Temperature 98.0 F Pulse Rate 72 Respiratory 18 Rate Blood Pressure 147/91 O2 Sat by Pulse 97 Oximetry Procedures - Orthopedic Splinting/Casting Injury #1 Side: left Upper Extremity Injury Location: short arm, hand Upper Extremity Immobilizer: thumb spica Medical Decision Making - Medical Decision Making Patient reevaluated and updated. - Radiology Data Radiology results: image reviewed (X-ray left hand does show degenerative changes first carpal metacarpal junction with some subluxation.) Disposition Clinical Impression: Thumb injury Disposition: HOME SELF-CARE Condition: Stable Instructions (If sedation given, give patient instructions): Hand Sprain (ED) Additional Instructions: Continue ice. Continue naproxen. Please follow-up with family doctor in the next couple days for recheck. Have them review x-rays. Return for increased pain, swelling, worsening or changing symptoms or other concerns. Limit use of left hand. Is patient prescribed a controlled substance at d/c from ED?: No Referrals: David Weiss MD [Primary Care Provider] - 1-2 days Bam Thibodeaux DO [Doctor of Osteopathic Medicine] - 1-2 days Beatriz Adams DO [Doctor of Osteopathic Medicine] - 1-2 days Time of Disposition: 10:40
[2021-07-06] MEDS ORDERED: traMADol 50 MG STARTER PACK 3 TAB BTL PO STA (10:41)
== END 2021-07-06 15:39 | disposition home or self-care (01) ==
LOC: EC 09:35
DX: S69.92XA Unspecified injury of left wrist, hand and finger(s), initial encounter (principal); J45.909 Unspecified asthma, uncomplicated; I10 Essential (primary) hypertension; K21.9 Gastro-esophageal reflux disease without esophagitis; Z79.83 Long term (current) use of bisphosphonates; F17.200 Nicotine dependence, unspecified, uncomplicated; Z88.2 Allergy status to sulfonamides; Z88.1 Allergy status to other antibiotic agents; Z88.5 Allergy status to narcotic agent; W19.XXXA Unspecified fall, initial encounter

== ENCOUNTER → 2021-12-22 | Outpatient (CLI) | payer OTHER ==
--- NOTE | 2021-12-22 15:11 | FL ---
EXAMINATION TYPE: FL barium swallow w video DATE OF EXAM: 12/22/2021 CLINICAL HISTORY: 56-year-old female R1 3.10 Dysphagia. Trouble swallowing and throat pain. TECHNIQUE: Deglutition study is performed utilizing thin liquid barium, honey and nectar thick liqui d barium, barium thick applesauce, and barium coated cracker. COMPARISON: None. FINDINGS: There is prominent rounded soft tissue occupying the vallecular space. This displaces the patient's s wallowed boluses and narrows the oropharynx. Otherwise, there is satisfactory initiation and propagat ion with all modalities tested. Normal mastication is seen with solid modalities tested. There is n o evidence of penetration or aspiration with any modality tested. No significant pharyngeal residue was appreciated. IMPRESSION: No penetration or aspiration. However, there is marked rounded soft tissue prominence filling the elizabeth lecular space and displacing the swallowed boluses. Correlate with direct visualization to exclude a mass. Please refer to speech therapist notes for further details if necessary.
== END | disposition home or self-care (01) ==
LOC: RADFLMAIN 11:15
PROVIDERS: ATTEND Family Medicine
DX: R13.10 Dysphagia, unspecified (principal)
CPT/HCPCS: 74230

== ENCOUNTER → 2022-01-05 | Outpatient (CLI) | payer OTHER ==
--- NOTE | 2022-01-05 14:42 | FL ---
EXAMINATION TYPE: FL barium swallow DATE OF EXAM: 01/05/2022 CLINICAL HISTORY: GERD. Choking with every bite for 6 months. History of prior reflux surgery twice. TECHNIQUE: A double contrast esophagram is performed utilizing air and barium. A total of 22 second s of fluoroscopic time was utilized during procedure and 38 images obtained COMPARISON: Prior Esophagram 2018. Prior modified barium swallow report December 22, 2021 FINDINGS: Patient had belching essentially making like a single contrast study. The esophagus shows s atisfactory motility and emptying into the stomach. No proximal diverticulum. No obvious proximal mas s as described on recent barium swallow study. No evidence of recurrent fixed hiatal hernia or stric ture noted. No significant gastroesophageal reflux was seen during real time performance of this stud y. Cholecystectomy clips are redemonstrated. Prominent gastric folds in the fundus raises concern for focal gastritis. IMPRESSION: As above.
== END | disposition home or self-care (01) ==
LOC: RADUSWWP 09:54
PROVIDERS: ATTEND Surgery
DX: K21.00 Gastro-esophageal reflux disease with esophagitis, without bleeding (principal)
CPT/HCPCS: 74220

== ENCOUNTER 2022-01-08 09:53 | Day surgery (SDC) | payer OTHER ==
[2022-01-07 08:32] VITALS: BMI 37.8
[~2022-01-08 09:53] MED LIST changes: -DEXAMETHASONE SOD PHOSPHATE 4 MG/ML 1 ML VIAL IV ONE; -HYDROcodone/APAP 7.5-325MG 1 EACH TAB ONE; -HYDROcodone/APAP 7.5-325MG 1 EACH TAB PO ONE; -HYDROmorphone (PF) 1 MG/ML ONE; -HYDROmorphone 0.5 MG/0.5 ML SYRINGE IVP PRN; -LACTATED RINGERS 1,000 ML IV ONE; -LIDOCAINE 1% INJ 10MG/ML (20 ML MDV) ONE; -MIDAZOLAM 2 MG/2 ML VIAL ONE; -ONDANSETRON 4 MG/2 ML VIAL IVP ONE; -PROPOFOL 10 MG/ML 20 ML VIAL IV ONE; -SUCCINYLCHOLINE CHLORIDE 100 MG/5 ML SYR IV ONE; -fentaNYL (PF) 50 MCG/ML 2 ML AMP ONE
[2022-01-08 10:22] VITALS: TEMP 98.3
--- NOTE | 2022-01-08 10:44 | P.GSHP ---
History of Present Illness H&P Date: 01/08/22 Chief Complaint: Dysphagia This a 56-year-old female presents today for EGD. Patient is currently to dysphagia. Patient recent esophagram upper GI shows no evidence of any recurrent hiatal hernia or gastric obstruction. Patient presents today for EGD. 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, TEMPORAL LOBE EPILEPSY (LAST SEIZURE 32 YRS AGO), SINUS TACHYCARDIA, STATES WBC RUNS HIGH (SEES DR MERAZ), HX OF FX BACK 1993, CONSTIPATION & DIARRHEA, NAUSEA., History of Any Multi-Drug Resistant Organisms: MRSA Date of last positivie culture/infection: 02/08/2014 MDRO Source:: CYST AT TOP OF BUTTOCKS Past Surgical History: Adenoidectomy, Cholecystectomy, Hernia Repair, Hysterectomy, Joint Replacement, Orthopedic Surgery, Tonsillectomy, Tubal Ligation, Uterine Ablation Additional Past Surgical History / Comment(s): I & D CYST LIKE BOIL AT TOP OF BUTTOCKS, RT ANKLE SURGERY, CTR-WINDY GANGLION CYSTS .,RT KNEE ARTHROSCOPY X 2, LT KNEE ARTHROSCOPY X1, HIATAL HERNIA REPAIR x2, BILATERAL KNEE REPLACEMENTS, LT X 1. RT X 2, COLONOSCOPY, EGD Past Anesthesia/Blood Transfusion Reactions: Postoperative Nausea & Vomiting (PONV) Additional Past Anesthesia/Blood Transfusion Reaction / Comment(s): STATES ALWAYS NAUSEATED. Smoking Status: Current every day smoker - Past Family History Father Family Medical History: Unable to Obtain Mother Family Medical History: Cancer Additional Family Medical History / Comment(s): BREAST CANCER Medications and Allergies Home Medications Medication Instructions Recorded Confirmed Type Omeprazole [PriLOSEC] 20 mg PO HS 11/25/18 01/08/22 History Ondansetron [Zofran] 8 mg PO Q8HR PRN 11/25/18 01/08/22 History Atorvastatin [Lipitor] 20 mg PO HS 02/13/20 01/08/22 History Bisoprolol-Hctz 5-6.25 mg [Ziac 1 tab PO DAILY 02/13/20 01/08/22 History 5-6.25 MG] OLANZapine [ZyPREXA] 10 mg PO HS 02/13/20 01/08/22 History busPIRone HCl [Buspar] 10 mg PO HS 02/13/20 01/08/22 History busPIRone HCl [Buspar] 20 mg PO QAM 02/13/20 01/08/22 History lamoTRIgine [LaMICtal] 100 mg PO DAILY 02/13/20 01/08/22 History Tiotropium 2.5 Mcg/Puff [Spiriva 2 puff INHALATION DAILY 01/07/22 01/08/22 History Respimat 2.5 Mcg] lamoTRIgine [LaMICtal] 150 mg PO HS 01/07/22 01/08/22 History Benztropine Mesylate [Cogentin] 1 mg PO BID 01/08/22 01/08/22 History Allergies Allergy/AdvReac Type Severity Reaction Status Date / Time sulfamethoxazole Allergy Unknown ITCHING, Verified 01/08/22 10:13 [From Bactrim] FELT LIKE BUGS CRAWLING ON SKIN trimethoprim [From Bactrim] Allergy Unknown ITCHING, Verified 01/08/22 10:13 FELT LIKE BUGS CRAWLING ON SKIN adhesive AdvReac TURNS SKIN Verified 01/08/22 10:13 RED AND SKIN PEELS OFF aspartame AdvReac Nausea Verified 01/08/22 10:13 [From Nutrasweet Aspartame] codeine AdvReac Dyspnea, Verified 01/08/22 10:13 (can take tablet - not liquid) saccharin AdvReac Nausea Verified 01/08/22 10:13 vancomycin AdvReac CAUSED PT Verified 01/08/22 10:13 TO GO INTO RENAL FAILURE PER PT Surgical - Exam Vital Signs Temp Pulse Resp BP Pulse Ox 98.3 F 86 18 139/84 96 01/08/22 10:11 01/08/22 10:11 01/08/22 10:11 01/08/22 10:11 01/08/22 10:11 - General well developed, well nourished, no distress - Eyes PERRL - ENT normal pinna - Neck no masses - Respiratory normal expansion - Cardiovascular Rhythm: regular - Abdomen Abdomen: soft, non tender Assessment and Plan Assessment: Dysphagia. We'll perform EGD.
[2022-01-08] MEDS ORDERED: LIDOCAINE 2% INJ 20 MG/ML (2 ML VIAL) ONE (10:45)
[2022-01-08] MEDS ORDERED: PROPOFOL 10 MG/ML 20 ML VIAL IV ONE (10:45)
--- NOTE | 2022-01-08 10:55 | P.OP ---
Date of Procedure: 01/08/22 Preoperative Diagnosis: Dysphagia Postoperative Diagnosis: Recurrent hiatal hernia Mild antral gastritis Procedure(s) Performed: EGD Anesthesia: MAC Surgeon: Jeffry Kelly Pathology: other (Antrum) Condition: stable Disposition: PACU Description of Procedure: The patient's placed on the endoscopy table in the lateral position. She received IV sedation. The gastro-/oropharynx passed in the esophagus into the stomach. Scope was then placed through the pylorus. The first and second portion of the duodenum appeared normal. Scope summer back the antrum this was minimal inflamed. A biopsies performed. The patient had retained food within the stomach. The scope was then retroflexed and the patient had a moderate size sliding hiatal hernia. The GE junction was at 36 cm. The distal esophagus appeared mildly inflamed. The proximal esophagus appeared normal. Scope withdrawn for patient.
[2022-01-08 11:48] VITALS: BP 141/82; PULSE 68; RESP 12
== END 2022-01-08 11:49 | disposition home or self-care (01) ==
LOC: ORWHC2ENDO 09:53
PROVIDERS: ATTEND Surgery
DX: K31.9 Disease of stomach and duodenum, unspecified (principal); K29.50 Unspecified chronic gastritis without bleeding; K44.9 Diaphragmatic hernia without obstruction or gangrene; J45.909 Unspecified asthma, uncomplicated; K21.9 Gastro-esophageal reflux disease without esophagitis; E78.5 Hyperlipidemia, unspecified; I10 Essential (primary) hypertension; M19.90 Unspecified osteoarthritis, unspecified site; K91.0 Vomiting following gastrointestinal surgery; F17.200 Nicotine dependence, unspecified, uncomplicated; G40.909 Epilepsy, unspecified, not intractable, without status epilepticus; N28.9 Disorder of kidney and ureter, unspecified; Z90.49 Acquired absence of other specified parts of digestive tract; Z90.710 Acquired absence of both cervix and uterus; Z98.890 Other specified postprocedural states; Z90.89 Acquired absence of other organs; Z98.51 Tubal ligation status; Z80.3 Family history of malignant neoplasm of breast; Z79.1 Long term (current) use of non-steroidal anti-inflammatories (NSAID); Z79.899 Other long term (current) drug therapy; Z88.1 Allergy status to other antibiotic agents; Z88.2 Allergy status to sulfonamides; Z88.5 Allergy status to narcotic agent
CPT/HCPCS: 43239; J2704; J2001; 88305

== ENCOUNTER → 2022-02-28 | Outpatient (CLI) | payer OTHER ==
[2022-02-28 16:30] LABS: Blood Urea Nitrogen 18.6 mg/dL (9.0-27.0); Non-African American GFR(CKD) 63.8 (60.0-200.0)
== END | disposition home or self-care (01) ==
LOC: LABWHC1 11:45
PROVIDERS: ATTEND Otolaryngology
DX: Z01.812 Encounter for preprocedural laboratory examination (principal)
CPT/HCPCS: 36415; 82565; 84520

== ENCOUNTER → 2022-03-02 | Outpatient (CLI) | payer OTHER ==
--- NOTE | 2022-03-02 10:25 | CT ---
EXAMINATION TYPE: CT soft tissue neck w con CT DLP: 629.7 mGycm, Automated exposure control for dose reduction was used. DATE OF EXAM: 03/02/2022 10:10 AM COMPARISON: None. CLINICAL INDICATION:Female, 56 years old with history of R22.0 LOCALIZED SWELLING, MASS AND LUMP, HEA D; PHH, lump in throat TECHNIQUE: Standard enhanced CT of the neck following intravenous administration of 70 cc of Isovue 3 00. Axial sections with coronal and sagittal reformats were obtained. FINDINGS: Brain: Visualized portions are grossly unremarkable. Orbits: Unremarkable Sinuses: Grossly unremarkable. Suprahyoid Neck: There is symmetric enlargement of the lingual tonsils bilaterally. The nasopharynx i s unremarkable. Infrahyoid Neck: The larynx, hypopharynx, and supraglottic area are clear and symmetric. Parotid Glands: Unremarkable. Submandibular Glands: Unremarkable. Musculoskeletal: Grade 1 anterolisthesis of C3 on C4 and C4 on C5. Mild multilevel degenerative disc disease. Lymph nodes: Bilateral prominent level 2A lymph nodes with largest on the right measuring 9 mm short axis largely left measuring 10 mm short axis. Vascular structures: Mild atherosclerotic calcifications of the internal carotid arteries. Thoracic Inlet/airway: Airway is patent. The lung apices are clear. Soft tissues/Thyroid: Subcentimeter hypodense nodule within the left thyroid lobe. Other: none. IMPRESSION 1. Symmetric lingual tonsil hypertrophy. Consider further evaluation with direct visualization. 2. Bilateral nonspecific prominent cervical lymph nodes.
== END | disposition home or self-care (01) ==
LOC: RADCTMAIN 09:44
PROVIDERS: ATTEND Otolaryngology
DX: J35.1 Hypertrophy of tonsils (principal); R22.0 Localized swelling, mass and lump, head
CPT/HCPCS: 70491; Q9967

== ENCOUNTER 2022-07-14 18:14 | Emergency (ER) | payer OTHER ==
[2022-07-14 18:43] VITALS: PULSE 68; TEMP 98.3
--- NOTE | 2022-07-14 19:34 | XR ---
EXAMINATION TYPE: XR shoulder complete RT DATE OF EXAM: 07/14/2022 7:11 PM INDICATION: Patient age:Female; 57 years old; Reason for study: pain; COMPARISON: None TECHNIQUE: The right shoulder was examined in AP, internally rotated and scapular Y projections. FINDINGS: Degeneration of the acromioclavicular joint and humerus. No evidence of acute osseous pathology, joint dislocation, or soft tissue swelling. The remaining por tions of the visualized chest are unremarkable. IMPRESSION: 1. No acute osseous pathology. 2. Moderate AC joint degeneration, 3. Consider further evaluation of the rotator cuff with MRI right shoulder.
--- NOTE | 2022-07-14 19:52 | ED ---
Upper Extremity HPI - General Chief Complaint: Extremity Injury, Upper Stated Complaint: rt shoulder injury Time Seen by Provider: 07/14/22 19:44 Source: patient Mode of arrival: ambulatory Limitations: no limitations - History of Present Illness Initial Comments: Patient is a 57-year-old female presenting with chief complaint of right shoulder injury that occurred today. She is having pain with range of motion. No numbness or tingling. - Related Data Home Medications Medication Instructions Recorded Confirmed Omeprazole [PriLOSEC] 20 mg PO HS 11/25/18 01/08/22 Ondansetron [Zofran] 8 mg PO Q8HR PRN 11/25/18 01/08/22 Atorvastatin [Lipitor] 20 mg PO HS 02/13/20 01/08/22 Bisoprolol-Hctz 5-6.25 mg [Ziac 1 tab PO DAILY 02/13/20 01/08/22 5-6.25 MG] OLANZapine [ZyPREXA] 10 mg PO HS 02/13/20 01/08/22 busPIRone HCl [Buspar] 10 mg PO HS 02/13/20 01/08/22 busPIRone HCl [Buspar] 20 mg PO QAM 02/13/20 01/08/22 lamoTRIgine [LaMICtal] 100 mg PO DAILY 02/13/20 01/08/22 Tiotropium 2.5 Mcg/Puff [Spiriva 2 puff INHALATION DAILY 01/07/22 01/08/22 Respimat 2.5 Mcg] lamoTRIgine [LaMICtal] 150 mg PO HS 01/07/22 01/08/22 Benztropine Mesylate [Cogentin] 1 mg PO BID 01/08/22 01/08/22 Allergies Allergy/AdvReac Type Severity Reaction Status Date / Time sulfamethoxazole Allergy Unknown ITCHING, Verified 07/14/22 18:43 [From Bactrim] FELT LIKE BUGS CRAWLING ON SKIN trimethoprim [From Bactrim] Allergy Unknown ITCHING, Verified 07/14/22 18:43 FELT LIKE BUGS CRAWLING ON SKIN adhesive AdvReac TURNS SKIN Verified 07/14/22 18:43 RED AND SKIN PEELS OFF aspartame AdvReac Nausea Verified 07/14/22 18:43 [From Nutrasweet Aspartame] codeine AdvReac Dyspnea, Verified 07/14/22 18:43 (can take tablet - not liquid) saccharin AdvReac Nausea Verified 07/14/22 18:43 vancomycin AdvReac CAUSED PT Verified 07/14/22 18:43 TO GO INTO RENAL FAILURE PER PT Review of Systems ROS Statement: Those systems with pertinent positive or pertinent negative responses have been documented in the HPI. ROS Other: All systems not noted in ROS Statement are negative. 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, TEMPORAL LOBE EPILEPSY (LAST SEIZURE 32 YRS AGO), SINUS TACHYCARDIA, STATES WBC RUNS HIGH (SEES DR MERAZ), HX OF FX BACK 1993, CONSTIPATION & DIARRHEA, NAUSEA., History of Any Multi-Drug Resistant Organisms: MRSA Date of last positivie culture/infection: 02/08/2014 MDRO Source:: CYST AT TOP OF BUTTOCKS Past Surgical History: Adenoidectomy, Cholecystectomy, Hernia Repair, Hysterectomy, Joint Replacement, Orthopedic Surgery, Tonsillectomy, Tubal Ligation, Uterine Ablation Additional Past Surgical History / Comment(s): I & D CYST LIKE BOIL AT TOP OF BUTTOCKS, RT ANKLE SURGERY, CTR-WINDY GANGLION CYSTS .,RT KNEE ARTHROSCOPY X 2, LT KNEE ARTHROSCOPY X1, HIATAL HERNIA REPAIR x2, BILATERAL KNEE REPLACEMENTS Past Anesthesia/Blood Transfusion Reactions: Postoperative Nausea & Vomiting (PONV) Additional Past Anesthesia/Blood Transfusion Reaction / Comment(s): STATES ALWAYS NAUSEATED. Past Psychological History: Bipolar, Depression Smoking Status: Current some day smoker Past Alcohol Use History: None Reported Past Drug Use History: None Reported - Past Family History Father Family Medical History: Unable to Obtain Mother Family Medical History: Cancer Additional Family Medical History / Comment(s): BREAST CANCER General Exam Limitations: no limitations General appearance: alert, in no apparent distress Head exam: Present: atraumatic, normocephalic, normal inspection Eye exam: Present: normal appearance, EOMI. Absent: scleral icterus, periorbital swelling Neck exam: Present: normal inspection, full ROM Right Shoulder Exam: Present: normal inspection, tenderness. Absent: full ROM, deformity Neurological exam: Present: alert, oriented X3, CN II-XII intact Psychiatric exam: Present: normal affect, normal mood Skin exam: Present: warm, dry, intact, normal color. Absent: rash Course Vital Signs 07/14/22 07/14/22 18:41 20:05 Temperature 98.3 F 98.3 F Pulse Rate 68 68 Respiratory 20 18 Rate Blood Pressure 142/81 140/72 O2 Sat by Pulse 99 99 Oximetry Medical Decision Making - Medical Decision Making Was pt. sent in by a medical professional or institution (, PA, APPLIQUER ZIGZAG, urgent care, hospital, or fpc...) When possible be specific @ -No Did you speak to anyone other than the patient for history (EMS, parent, family, police, friend...)? What history was obtained from this source @ -No Did you review nursing and triage notes (agree or disagree)? Why? @ -I reviewed and agree with nursing and triage notes Were old charts reviewed (outside hosp., previous admission, EMS record, old EKG, old radiological studies, urgent care reports/EKG's, fpc records)? Report findings @ -No old charts were reviewed Differential Diagnosis (chest pain, altered mental status, abdominal pain women, abdominal pain men, vaginal bleeding, weakness, fever, dyspnea, syncope, headache, dizziness, GI bleed, back pain, seizure, CVA, palpatations, mental health, musculoskeletal)? @ -Differential Musculoskeletal Muscular strain, contusion, ligament sprain, fracture, arthritis, septic arthritis, bursitis, cellulitis, muscle spasm, nerve compression, DVT, arterial occlusion, herpes zoster, electrolyte abnormality, tumor.... This is not meant to be in all inclusive list EKG interpreted by me (3pts min.). @ -As above X-rays interpreted by me (1pt min.). @ -X-ray shows no fracture or dislocation CT interpreted by me (1pt min.). @ -None done U/S interpreted by me (1pt. min.). @ -None done What testing was considered but not performed or refused? (CT, X-rays, U/S, labs)? Why? @ -None What meds were considered but not given or refused? Why? @ -None Did you discuss the management of the patient with other professionals (professionals i.e. , PA, APPLI[employer]ER ZIGZAG, lab, RT, psych nurse, social media designer, back hanger, teacher, nuclear security officer, rehabilitation case coordinator)? Give summary @ -No Was smoking cessation discussed for >3mins.? @ -No Was critical care preformed (if so, how long)? @ -No Were there social determinants of health that impacted care today? How? (Homelessness, low income, unemployed, alcoholism, drug addiction, transpo rtation, low edu. Level, literacy, decrease access to med. care, fpc, rehab)? @ -No Was there de-escalation of care discussed even if they declined (Discuss DNR or withdrawal of care, Hospice)? DNR status @ -No What co-morbidities impacted this encounter? (DM, HTN, Smoking, COPD, CAD, Cancer, CVA, ARF, Chemo, Hep., AIDS, mental health diagnosis, sleep apnea, morbid obesity)? @ -None Was patient admitted / discharged? Hospital course, mention meds given and route, prescriptions, significant lab abnormalities, going to OR and other pertinent info. @ -57-year-old female presented with chief complaint of right shoulder injury. X-rays negative for fracture or dislocation. Patient is placed in shoulder immobilizer and instructed to follow-up with her orthopedist. Educated on supportive management at home. Follow-up with PCP. Report back to ER with any new or worsening symptoms. Discussed return parameters and answered all questions. Patient conveyed verbal understanding and agreed to the plan. I discussed this case in detail with my attending Dr. Stevenson Undiagnosed new problem with uncertain prognosis? @ -No Drug Therapy requiring intensive monitoring for toxicity (Heparin, Nitro, Insulin, Cardizem)? @ -No Were any procedures done? @ -No Diagnosis/symptom? @ -Shoulder sprain Acute, or Chronic, or Acute on Chronic? @ -Acute Uncomplicated (without systemic symptoms) or Complicated (systemic symptoms)? @ -Uncomplicated Side effects of treatment? @ -No Exacerbation, Progression, or Severe Exacerbation? @ -No Poses a threat to life or bodily function? How? (Chest pain, [place], [place], pneumonia, PE, COPD, DKA, ARF, appy, cholecystitis, CVA, Diverticulitis, Homicidal, Suicidal, threat to staff... and all critical care pts) @ -No Disposition Clinical Impression: Shoulder sprain Disposition: HOME SELF-CARE Condition: Good Instructions (If sedation given, give patient instructions): Shoulder Sprain (ED) Additional Instructions: Follow-up with PCP or orthopedics. Report back to ER with any new or worsening symptoms. Take Motrin and Tylenol as needed for pain control. Rest and ice the arm. Is patient prescribed a controlled substance at d/c from ED?: No Referrals: Floresita Quan DO [Primary Care Provider] - 1-2 days Hunter Villegas MD [STAFF PHYSICIAN] - 1-2 days Time of Disposition: 19:52
[2022-07-14 20:08] VITALS: BP 140/72; RESP 18
== END 2022-07-14 20:05 | disposition home or self-care (01) ==
LOC: EC 18:14
DX: S43.401A Unspecified sprain of right shoulder joint, initial encounter (principal); I10 Essential (primary) hypertension; J45.909 Unspecified asthma, uncomplicated; K21.9 Gastro-esophageal reflux disease without esophagitis; M19.90 Unspecified osteoarthritis, unspecified site; F31.9 Bipolar disorder, unspecified; F17.200 Nicotine dependence, unspecified, uncomplicated; Z79.899 Other long term (current) drug therapy; Z88.1 Allergy status to other antibiotic agents; Z88.2 Allergy status to sulfonamides; Z88.5 Allergy status to narcotic agent; Z88.8 Allergy status to other drugs, medicaments and biological substances; Z90.49 Acquired absence of other specified parts of digestive tract; X58.XXXA Exposure to other specified factors, initial encounter
CPT/HCPCS: 99283

== ENCOUNTER 2023-07-03 16:24 | Emergency (ER) | payer OTHER ==
--- NOTE | 2023-07-03 17:59 | ED ---
General Adult HPI - General Chief complaint: Animal Bite Stated complaint: dog bite Time Seen by Provider: 07/03/23 17:45 Source: patient, RN notes reviewed Mode of arrival: ambulatory Limitations: no limitations - History of Present Illness Initial comments: 58 year old female presents to the emergency department for evaluation of dog bite. She states that this is her personal dog who bit her. Reports that the dogs are up to date on rabies vaccination. Patient reports puncture wounds to right forearm and hand. Reports full range of motion to upper extremity. Denies numbness, tingling. She is unsure of her last tetanus vaccination. - Related Data Home Medications Medication Instructions Recorded Confirmed Omeprazole [PriLOSEC] 20 mg PO HS 11/25/18 01/08/22 Ondansetron [Zofran] 8 mg PO Q8HR PRN 11/25/18 01/08/22 Atorvastatin [Lipitor] 20 mg PO HS 02/13/20 01/08/22 Bisoprolol-Hctz 5-6.25 mg [Ziac 1 tab PO DAILY 02/13/20 01/08/22 5-6.25 MG] OLANZapine [ZyPREXA] 10 mg PO HS 02/13/20 01/08/22 busPIRone HCl [Buspar] 10 mg PO HS 02/13/20 01/08/22 busPIRone HCl [Buspar] 20 mg PO QA 02/13/20 01/08/22 lamoTRIgine [LaMICtal] 100 mg PO DAILY 02/13/20 01/08/22 Tiotropium 2.5 Mcg/Puff [Spiriva 2 puff INHALATION DAILY 01/07/22 01/08/22 Respimat 2.5 Mcg] lamoTRIgine [LaMICtal] 150 mg PO HS 01/07/22 01/08/22 Benztropine Mesylate [Cogentin] 1 mg PO BID 01/08/22 01/08/22 Previous Rx's Medication Instructions Recorded Amoxic-Pot Clav 875-125Mg 1 tab PO Q12HR #20 tab 07/03/23 [Augmentin 875-125] Allergies Allergy/AdvReac Type Severity Reaction Status Date / Time sulfamethoxazole Allergy Unknown ITCHING, Verified 07/03/23 16:41 [From Bactrim] FELT LIKE BUGS CRAWLING ON SKIN trimethoprim [From Bactrim] Allergy Unknown ITCHING, Verified 07/03/23 16:41 FELT LIKE BUGS CRAWLING ON SKIN adhesive AdvReac TURNS SKIN Verified 07/03/23 16:41 RED AND SKIN PEELS OFF aspartame AdvReac Nausea Verified 07/03/23 16:41 [From Nutrasweet Aspartame] codeine AdvReac Dyspnea, Verified 07/03/23 16:41 (can take tablet - not liquid) saccharin AdvReac Nausea Verified 07/03/23 16:41 vancomycin AdvReac CAUSED PT Verified 07/03/23 16:41 TO GO INTO RENAL FAILURE PER PT Review of Systems ROS Statement: Those systems with pertinent positive or pertinent negative responses have been documented in the HPI. ROS Other: All systems not noted in ROS Statement are negative. 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, TEMPORAL LOBE EPILEPSY (LAST SEIZURE 32 YRS AGO), SINUS TACHYCARDIA, STATES WBC RUNS HIGH (SEES DR MERAZ), HX OF FX BACK 1993, CONSTIPATION & DIARRHEA, NAUSEA., History of Any Multi-Drug Resistant Organisms: MRSA Date of last positivie culture/infection: 02/08/2014 MDRO Source:: CYST AT TOP OF BUTTOCKS Past Surgical History: Adenoidectomy, Cholecystectomy, Hernia Repair, Hysterectomy, Joint Replacement, Orthopedic Surgery, Tonsillectomy, Tubal Ligation, Uterine Ablation Additional Past Surgical History / Comment(s): I & D CYST LIKE BOIL AT TOP OF BUTTOCKS, RT ANKLE SURGERY, CTR-WINDY GANGLION CYSTS .,RT KNEE ARTHROSCOPY X 2, LT KNEE ARTHROSCOPY X1, HIATAL HERNIA REPAIR x2, BILATERAL KNEE REPLACEMENTS Past Anesthesia/Blood Transfusion Reactions: Postoperative Nausea & Vomiting (PONV) Additional Past Anesthesia/Blood Transfusion Reaction / Comment(s): STATES ALWAYS NAUSEATED. Past Psychological History: Bipolar, Depression Smoking Status: Current some day smoker Past Alcohol Use History: None Reported Past Drug Use History: None Reported - Past Family History Father Family Medical History: Unable to Obtain Mother Family Medical History: Cancer Additional Family Medical History / Comment(s): BREAST CANCER General Exam Limitations: no limitations General appearance: alert, in no apparent distress Head exam: Present: atraumatic, normocephalic, normal inspection Eye exam: Present: normal appearance, PERRL, EOMI. Absent: scleral icterus, conjunctival injection, periorbital swelling Respiratory exam: Present: normal lung sounds bilaterally. Absent: respiratory distress, wheezes, rales, rhonchi, stridor Cardiovascular Exam: Present: regular rate, normal rhythm, normal heart sounds. Absent: systolic murmur, diastolic murmur, rubs, gallop, clicks Neurological exam: Present: alert, oriented X3 Psychiatric exam: Present: normal affect, normal mood Skin exam: Present: warm, dry, other (puncture wounds to dorsum of right hand and anterior forearm). Absent: intact Course Vital Signs 07/03/23 07/03/23 16:39 19:19 Temperature 98.5 F 98.2 F Pulse Rate 85 86 Respiratory 16 18 Rate Blood Pressure 149/99 145/76 O2 Sat by Pulse 95 99 Oximetry Medical Decision Making - Medical Decision Making Was pt. sent in by a medical professional or institution (, PA, RESIN FILTERER, urgent care, hospital, or assisted...) When possible be specific @ -No Did you speak to anyone other than the patient for history (EMS, parent, family, police, friend...)? What history was obtained from this source @ -No Did you review nursing and triage notes (agree or disagree)? Why? @ -I reviewed and agree with nursing and triage notes Were old charts reviewed (outside hosp., previous admission, EMS record, old EKG, old radiological studies, urgent care reports/EKG's, assisted records)? Report findings @ -No old charts were reviewed Differential Diagnosis (chest pain, altered mental status, abdominal pain women, abdominal pain men, vaginal bleeding, weakness, fever, dyspnea, syncope, headache, dizziness, GI bleed, back pain, seizure, CVA, palpatations, mental health, musculoskeletal)? @ -Dog bite, cellulitis, soft tissue foreign body, this list is not all inclusive EKG interpreted by me (3pts min.). @ -None X-rays interpreted by me (1pt min.). @ -None done CT interpreted by me (1pt min.). @ -None done U/S interpreted by me (1pt. min.). @ -None done What testing was considered but not performed or refused? (CT, X-rays, U/S, labs)? Why? @ -X-rays considered to rule out foreign body, patient declined What meds were considered but not given or refused? Why? @ -None Did you discuss the management of the patient with other professionals (professionals i.e. , PA, RESIN FILTERER, lab, RT, psych nurse, psychiatric social worker supervisor, patient support assistant, teacher, information security officer, oil field caser)? Give summary @ -No Was smoking cessation discussed for >3mins.? @ -No Was critical care preformed (if so, how long)? @ -No Were there social determinants of health that impacted care today? How? (Homelessness, low income, unemployed, alcoholism, drug addiction, transportation, low edu. Level, literacy, decrease access to med. care, prison, rehab)? @ -No Was there de-escalation of care discussed even if they declined (Discuss DNR or withdrawal of care, Hospice)? DNR status @ -No What co-morbidities impacted this encounter? (DM, HTN, Smoking, COPD, CAD, Cancer, CVA, ARF, Chemo, Hep., AIDS, mental health diagnosis, sleep apnea, morbid obesity)? @ -None Was patient admitted / discharged? Hospital course, mention meds given and route, prescriptions, significant lab abnormalities, going to OR and other pertinent info. @ -Discharge. Patient presented to the emergency department for evaluation of dog bite. She states that this is her personal dog who bit her and is up-to-date on rabies vaccination. Patient has puncture wounds to the dorsum of the right hand and right forearm. Discussed x-rays to assess for foreign body, patient declined. She is unsure of her last tetanus vaccination, updated today. Wounds are cleaned and dressed. Patient will be started on Augmentin. Prescription sent to patients pharmacy for Augmentin. Patient understanding agreeable plan. Patient stable at time of discharge. Case discussed with Dr. Hernandez Undiagnosed new problem with uncertain prognosis? @ -No Drug Therapy requiring intensive monitoring for toxicity (Heparin, Nitro, Insulin, Cardizem)? @ -No Were any procedures done? @ -No Diagnosis/symptom? @ -Dog bite Acute, or Chronic, or Acute on Chronic? @ -acute Uncomplicated (without systemic symptoms) or Complicated (systemic symptoms)? @ -uncomplicated Side effects of treatment? @ -No Exacerbation, Progression, or Severe Exacerbation? @ -No Poses a threat to life or bodily function? How? (Chest pain, [place], [place], pneumonia, PE, COPD, DKA, ARF, appy, cholecystitis, CVA, Diverticulitis, Homicidal, Suicidal, threat to staff... and all critical care pts) @ -No Disposition Clinical Impression: Dog bite Disposition: HOME SELF-CARE Condition: Stable Instructions (If sedation given, give patient instructions): Animal Bite (ED) Additional Instructions: Please keep wound clean and dry. Utilize Tylenol for discomfort. Follow up with your primary care provider. Return to the emergency department for new or worsening symptoms. Prescriptions: Amoxic-Pot Clav 875-125Mg [Augmentin 875-125] 1 tab PO Q12HR #20 tab Is patient prescribed a controlled substance at d/c from ED?: No Referrals: Floresita Quan DO [Primary Care Provider] - 1-2 days
[2023-07-03] MEDS: DIPH,PERTUS(ACELL)TETVAC-LF 0.5 ML VIAL IM ONE (18:09)
[2023-07-03] MEDS: ACETAMINOPHEN TAB 500 MG TAB PO STA (18:11)
[2023-07-03] MEDS: AMOXIC-POT CLAV 875MG STARTER PACK 2 TAB BTL PO STA (18:49)
[2023-07-03 19:48] VITALS: BP 145/76; PULSE 86; RESP 18; TEMP 98.2
== END 2023-07-03 19:22 | disposition home or self-care (01) ==
LOC: EC 16:24
DX: S51.831A Puncture wound without foreign body of right forearm, initial encounter (principal); S61.431A Puncture wound without foreign body of right hand, initial encounter; F17.200 Nicotine dependence, unspecified, uncomplicated; Z88.1 Allergy status to other antibiotic agents; Z88.2 Allergy status to sulfonamides; Z88.5 Allergy status to narcotic agent; Z91.048 Other nonmedicinal substance allergy status; Z91.018 Allergy to other foods; Z23 Encounter for immunization; W54.0XXA Bitten by dog, initial encounter
CPT/HCPCS: 90471; 90715; 99283